=== PATIENT | male | born 1985 | race Caucasian/White ===

== ENCOUNTER 2024-08-18 10:21 | Inpatient (IN) ==
--- NOTE | 2024-08-18 11:29 | Emergency Department Note ---
Impression & Plan Isael's angina, Odontogenic infection of jaw, Narrowing of airway ED Provider Note CHIEF COMPLAINT: Right lower jaw pain x 1 week, right facial swelling x 2 days HISTORY OF PRESENT ILLNESS: Patient is a 38-year-old male with past medical history significant for hypertension, tachycardia, ADHD and bipolar disorder who presents to the emergency department accompanied by duncan for evaluation of fevers, right-sided facial pain and swelling that started over the last couple of days. He has a bad right lower rear molar, that began to act up at the end of last year. He developed pain in the right lower jawline last , 6 days ago. He was using Tylenol and ibuprofen for pain. He had some leftover amoxicillin, which she took for about 3 or 4 days. In the last 2 days, he has developed right sided facial pain, redness and swelling. He reports fevers as high as 102 F orally. He was seen at [facility] yesterday. He had extensive workup including CBC with differential, lactate, magnesium, phosphorus, ESR and blood cultures x 2. CT of the soft tissue neck was obtained. He received IV dexamethasone, Toradol, morphine, Zofran and Zosyn. He was discharged with [place], Levaquin 500 mg daily and metronidazole 500 mg 3 times daily. He was diagnosed with a facial cellulitis and dental infection. Patient now presents to our emergency department because the facial swelling is getting worse. He now has swelling up and around his right eye, which is a change from yesterday. He has continued to run fevers. He started hydroperoxide rinses overnight. He rates his pain a 10/10. He has not been able to eat or swallow well for the last couple of days. REVIEW OF SYSTEMS: Review of systems as per HPI. All other systems reviewed were negative. 10 systems reviewed. PMH: External medical records are reviewed and summarized as above/below. See Problem List. SOCIAL HISTORY: Patient lives at home. Non-smoker. PHYSICAL EXAM: Vital Signs: Reviewed Nurse's notes. CONSTITUTIONAL: Patient is in overweight, ill although nontoxic appearing 38-year-old male who is laying semiupright in the gurney. He is managing his own secretions. HEENT: Normocephalic, atraumatic. Pupils equal, round, reactive to light and accommodation. EOMs intact without nystagmus. Sclera are anicteric. No conjunctival injection. No chemosis. No proptosis. Tympanic membranes intact, with normal landmarks. External canals are clear. Nasopharynx is clear. Exam of the oropharynx is difficult due to trismus. There is an obvious cavity of the right lower first molar. There does appear to be the posterior pharyngeal fullness on the right, with uvular deviation. Sublingual space is soft. FACE: Significant swelling, erythema, increased warmth and induration of the right cheek, spreading towards the right christianity area. There is associated periorbital swelling with mild erythema. Cellulitis extends into the jawline, and the right submental/sublingual space. There is periorbital erythema, which is soft. NECK: Cervical chain lymphadenopathy noted bilaterally. HEART: Regular rate and rhythm, mildly tachycardic in the 90s. LUNGS: Clear to auscultation. ED course: The patient was seen and assessed as above. External medical records are reviewed. He presents to the emergency department for fairly significant right-sided facial swelling consistent with cellulitis and concerning for abscess or even Isael's angina. He is managing his airway and tolerating secretions. IV lock was initiated. Laboratory studies including CBC with differential, CMP, lactate, Pro-Guille and blood cultures x 2 were collected. He was hydrated with normal saline solution and treated with Zofran and morphine IV. He was given Unasyn IV. CT of the soft tissue neck/facial area was obtained to evaluate the swelling. Diagnostics, as interpreted by me: Laboratory studies: Elevated white count at 16,900 with left shift and monocytosis. No anemia. No significant electrolyte imbalance, no NICO or transaminitis. Lactate is not elevated and therefore not indicative of severe sepsis. Pro-Guille is elevated at 6.8. Blood cultures are pending. Cardiac monitoring: An order was placed for continuous cardiac monitoring. The monitor shows a sinus tachycardia in the 90s per my interpretation. Imaging studies: CT scan soft tissue face/neck with IV contrast consistent with severe odontogenic infection involving the right hemimandible. There is a periapical abscess noted there. There are extensive inflammatory changes in the right submandibular sublingual and submental spaces with ill-defined foci suggestive of phlegmon versus multifocal abscesses. Additional abscesses also seen in the right temporalis area. There is moderate to severe supraglottic airway narrowing and severe narrowing of the oral and hypopharynx. Patient history and presentation were reviewed with attending physician, Dr. Lindquist. Patient discussed with the ED case management specialist regarding potential for admission. I was contacted by interpreting radiologist, Dr. Carrion, with regard to the patient's CT scan findings, given extensive infectious pathology and airway narrowing. Patient was reassessed. He was feeling mildly improved with the IV pain medications. CT scan findings discussed with the patient and his significant other. They are aware that I am contacting [facility] to discuss his case. I did review the patient with Osiel Carr PharmD, who agreed with Unasyn, and did not feel that any additional antibiotic intervention was necessary at this time. Patient discussed with OMFS, Dr. Woodruff. He reviewed the patient's CT scan, and would like the patient to be admitted to the medical service, with plan for for OR later this afternoon. ED case management specialist again notified regarding plan for admission and OR. [facility] patient reviewed with Dr. Montiel, and RICKY Morales PA-C. Please refer to their H&P, admission orders and OMFS consultation for further information. Patient was updated with regards to the plan for admission and OR. He remained stable and comfortable while in the ED, pending the OR. Chronic conditions affecting care: Chronic dental disease, obesity, hypertension Social determinants of health care impacting treatment: Lack of medical insurance Differential diagnosis: Dental abscess, osteomyelitis, facial cellulitis, facial abscess, Isael's angina, airway compromise, sepsis, among others. Past Med/Surg History Problem List (Updated 08/18/24 @ 18:16 by Katina Garza) Hypertension Odontogenic infection of jaw (Acute) Narrowing of airway (Acute) Isael's angina (Acute) Dental abscess Medical History Sinus tachycardia "since having COVID" Bipolar 1 disorder ADHD Surgical History History of orthopedic surgery Family History (Updated 08/18/24 @ 17:03 by Mikayla Montiel MD) Other Family history non-contributory Social History Smoking Status: Never smoker Preferred Language: Nepali Feels Safe at Home: Yes Allergies Allergies Allergy/AdvReac Type Severity Reaction Status Date / Time lamotrigine [From Lamictal] Allergy Intermediate Rash Verified 08/18/24 15:26 Home Meds Home Medications Medication Instructions Recorded Confirmed hydrocodone 5 mg-acetaminophen 325 1 tab PO Q6H PRN Pain 08/18/24 08/18/24 mg tablet ibuprofen 200 mg tablet 200 mg PO Q6H PRN Pain 08/18/24 08/18/24 levofloxacin 500 mg tablet 500 mg PO DAILY 08/18/24 08/18/24 metronidazole 500 mg tablet 500 mg PO TID 08/18/24 08/18/24 Results & Data (ED) Vital Signs Vital Signs - 24 hr 08/18/24 10:29 08/18/24 11:08 08/18/24 11:09 Temperature 36.4 C L Temperature Source Oral Pulse Rate 100 H 103 H 100 H Pulse Rate from SpO2 Sensor 98 H Pulse Rhythm Regular Pulse Strength Normal Respiratory Rate 16 22 Respiratory Effort / Characteristics Non-Labored Spontaneous Respiratory Depth Normal Respiratory Pattern Regular Blood Pressure 154/103 H Blood Pressure Mean 120 Blood Pressure Position Sitting Pulse Oximetry 98 95 Oxygen Delivery Method Room Air Room Air Sepsis Recent Fever Within 48 Hours Yes Sepsis New/Unexplained Change in Mental Status N/A Sepsis Action Taken by Nursing No Action Required 08/18/24 11:12 08/18/24 11:30 08/18/24 11:41 Temperature Temperature Source Pulse Rate 86 83 Pulse Rate from SpO2 Sensor 88 83 Pulse Rhythm Pulse Strength Respiratory Rate 24 20 Respiratory Effort / Characteristics Respiratory Depth Respiratory Pattern Blood Pressure 156/98 H Blood Pressure Mean 112 Blood Pressure Position Pulse Oximetry 99 95 Oxygen Delivery Method Room Air Room Air Sepsis Recent Fever Within 48 Hours Sepsis New/Unexplained Change in Mental Status Sepsis Action Taken by Nursing 08/18/24 11:50 08/18/24 12:00 08/18/24 12:05 Temperature Temperature Source Pulse Rate 69 97 H Pulse Rate from SpO2 Sensor 67 92 H Pulse Rhythm Pulse Strength Respiratory Rate 19 17 Respiratory Effort / Characteristics Respiratory Depth Respiratory Pattern Blood Pressure 149/89 H Blood Pressure Mean 101 Blood Pressure Position Pulse Oximetry 98 97 Oxygen Delivery Method Room Air Room Air Sepsis Recent Fever Within 48 Hours Sepsis New/Unexplained Change in Mental Status Sepsis Action Taken by Nursing 08/18/24 12:50 08/18/24 12:59 08/18/24 13:00 Temperature Temperature Source Pulse Rate 82 81 Pulse Rate from SpO2 Sensor 81 80 Pulse Rhythm Pulse Strength Respiratory Rate 14 19 Respiratory Effort / Characteristics Respiratory Depth Respiratory Pattern Blood Pressure 147/96 H Blood Pressure Mean 108 Blood Pressure Position Pulse Oximetry 96 97 Oxygen Delivery Method Room Air Room Air Sepsis Recent Fever Within 48 Hours Sepsis New/Unexplained Change in Mental Status Sepsis Action Taken by Nursing 08/18/24 13:03 08/18/24 13:30 08/18/24 13:30 Temperature Temperature Source Pulse Rate 60 67 Pulse Rate from SpO2 Sensor 61 65 Pulse Rhythm Pulse Strength Respiratory Rate 18 18 Respiratory Effort / Characteristics Respiratory Depth Respiratory Pattern Blood Pressure 155/91 H Blood Pressure Mean 110 Blood Pressure Position Pulse Oximetry 100 98 Oxygen Delivery Method Room Air Room Air Sepsis Recent Fever Within 48 Hours Sepsis New/Unexplained Change in Mental Status Sepsis Action Taken by Nursing 08/18/24 13:57 08/18/24 14:00 Temperature Temperature Source Pulse Rate 90 Pulse Rate from SpO2 Sensor 87 Pulse Rhythm Pulse Strength Respiratory Rate 15 Respiratory Effort / Characteristics Respiratory Depth Respiratory Pattern Blood Pressure 161/96 H Blood Pressure Mean 110 Blood Pressure Position Pulse Oximetry 98 Oxygen Delivery Method Room Air Sepsis Recent Fever Within 48 Hours Sepsis New/Unexplained Change in Mental Status Sepsis Action Taken by Prison Medications Current Medication List: was personally reviewed by me Laboratory Data Attestation: I reviewed the patient's lab results. 08/18/24 10:52 08/18/24 10:52 Lab Results 08/18/24 08/18/24 Range/Units 10:52 11:37 WBC 16.92 H (4.8-10.8) K/ul RBC 5.00 (4.70-6.10) M/uL Hgb 15.2 (14.0-18.0) g/dl Hct 45.2 (42.0-52.0) % MCV 90.4 (80.0-100.0) fL MCH 30.4 (25.0-34.0) pg MCHC 33.6 (32.0-36.0) g/dL RDW Std Deviation 45.9 (36.4-46.3) fL RDW Coeff of [place] 13.8 (11.5-14.5) % Plt Count 188 (130-400) K/uL MPV 11.1 (9.4-12.4) fL Immature Gran % (Auto) 1.1 % Neut % (Auto) 83.0 % Lymph % (Auto) 5.9 % [place] % (Auto) 9.2 % Eos % (Auto) 0.2 % Baso % (Auto) 0.6 % Neut # (Auto) 14.05 H (1.40-6.50) K/uL Lymph # (Auto) 0.99 L (1.20-3.40) K/uL [place] # (Auto) 1.56 H (0.11-0.59) K/uL Eos # (Auto) 0.04 (0.00-0.50) K/uL Baso # (Auto) 0.10 (0.00-0.20) K/uL Immature Gran # (Auto) 0.18 (0.01-0.20) K/uL Sodium 137 (136-145) mmol/L Potassium 4.0 (3.5-5.1) mmol/L Chloride 100 (98-107) mmol/L Carbon Dioxide 28 (21-32) mmol/L Anion Gap 9 (3-11) BUN 16 (6-23) mg/dl Creatinine 0.73 (0.6-1.4) mg/dl Est Cr Clr Drug Dosing 183.7 ml/min eGFR 120.17 BUN/Creatinine Ratio 21.9 H (10-20) Glucose 124 H (70-99(Fasting)) mg/dl Lactate 1.6 (0.4-2.0) mmol/L Calcium 9.0 (8.6-10.3) mg/dl Total Bilirubin 1.2 H (0.2-1.0) mg/dl AST 37 (13-39) U/L ALT 36 (7-52) U/L Alkaline Phosphatase 137 H (34-104) U/L Troponin I High Sens 12.8 (0-20) pg/ml Total Protein 6.8 (6.0-8.3) gm/dl Albumin 3.3 L (3.4-5.0) gm/dl Globulin 3.5 (2.5-4.0) gm/dl Albumin/Globulin Ratio 0.9 (0.9-2) Procalcitonin 6.84 H (0-0.5) ng/ml Administered Medications Lactated Ringer's (Lr) 1,000 mls @ 15 mls/hr IV .Q24H [facility] Stop: 08/21/24 15:44 Last Infusion: 08/18/24 15:51 Dose: Infused Documented By: Admin: 08/18/24 15:45 Dose: 15 mls/hr Documented By: FALLON Discontinued Medications Bupivacaine HCl (Bupivacaine/Epinephrine 0.5% 1:200,000 1.8 Ml Carp) Confirm Administered Dose 9 ml .ROUTE .STK-MED ONE Stop: 08/18/24 15:44 Last Admin: 08/18/24 17:29 Dose: 7.2 ml Documented By: RADHA Cefazolin Sodium (Cefazolin 330 Mg/Ml 1 Gm Vial) Confirm Administered Dose 990 mg .ROUTE .STK-MED ONE Stop: 08/18/24 16:46 Last Admin: 08/18/24 17:29 Dose: 990 mg Documented By: RADHA Chlorhexidine Gluconate (Chlorhexidine Gluconate 0.12% 480 Ml) Confirm Administered Dose 480 ml MT [facility] Stop: 08/18/24 15:44 Last Admin: 08/18/24 17:29 Dose: 480 ml Documented By: RADHA Dexamethasone (Dexamethasone Sod Inj 4 Mg/Ml Vial) 6 mg IV NOW STA Stop: 08/18/24 14:17 Last Admin: 08/18/24 14:39 Dose: 6 mg Documented By: LINDA Ampicillin Sodium/Sulbactam Sodium (Unasyn) 3,000 mg in 100 mls @ 200 mls/hr IV NOW STA Stop: 08/18/24 11:53 Last Infusion: 08/18/24 12:43 Dose: Infused Documented By: Admin: 08/18/24 11:38 Dose: 200 mls/hr Documented By: PARDEEP Sodium Chloride (Nss) 1,000 mls @ 999 mls/hr IV .Q1H1M [place] Stop: 08/18/24 12:27 Last Infusion: 08/18/24 13:41 Dose: Infused Documented By: Admin: 08/18/24 11:39 Dose: 999 mls/hr Documented By: PARDEEP Ioversol (Optiray 320 100ml) 94 ml IV ONCE ONE Stop: 08/18/24 12:22 Last Admin: 08/18/24 12:21 Dose: 94 ml Documented By: MICHI Morphine Sulfate (Morphine Sulfate 4 Mg/Ml 1 Ml Carp\\Vial) 4 mg IV NOW STA Stop: 08/18/24 11:25 Last Admin: 08/18/24 11:38 Dose: 4 mg Documented By: PARDEEP Ondansetron HCl (Ondansetron Inj 2 Mg/Ml 2 Ml Vial) 4 mg IV NOW STA Stop: 08/18/24 11:25 Last Admin: 08/18/24 11:38 Dose: 4 mg Documented By: PARDEEP Imaging Data Attestation: I personally reviewed and interpreted this imaging study as follows: Radiologist's Impression: Soft Tissue Neck CT 08/18/24 11:24 CT OF THE NECK WITH IV CONTRAST CLINICAL HISTORY: R LOWER DENTAL INFECTION, EVAL LUDWIGS/AIRWAY COMPARISON STUDY: No previous studies for comparison. TECHNIQUE: Following IV administration of 94 mL of Optiray, helical axial images of the neck were obtained. Sagittal and coronal reconstructions were viewed. Automated exposure control was utilized for the study. A dose lowering technique was utilized adhering to the principles of ALARA. CT DOSE: 602.89 mGy.cm FINDINGS: Visualized portions of the intracranial contents demonstrate a 4.1 cm focus of encephalomalacia within the anterior right frontal lobe. No retrobulbar abnormalities are identified. Mastoid air cells are clear. There is mild sinus mucosal thickening. Extensive inflammation is centered on the right hemimandible. Specifically, there are dental carries a periapical lucency of the right first mandibular molar. There is a rim-enhancing 1.6 x 0.6 cm fluid collection along the right hemimandible on image 236 of 481 consistent with an abscess. Multiple additional ill-defined hypodense foci with peripheral enhancement within the right submandibular, sublingual and submental spaces is present. There is asymmetric enhancement and enlargement of the right submandibular gland which is likely reactive. Inflammation extends into the right infratemporal fossa with suspected phlegmon and possible developing abscess. Hypodense focus within the right submandibular space on image 235 measures 4.3 x 3.9 x 2.6 cm. Elongated rim-enhancing fluid collections within the right temporalis muscle measure up to 6.5 x 1.2 cm. Right neck and floor of mouth inflammation results in moderate to severe supraglottic airway narrowing. There is also severe narrowing of the hypoechoic and oropharynx. Asymmetric thickening of the right platysma is noted. Skin thickening and subcutaneous stranding extend throughout the anterior neck. There is no soft tissue gas. Multiple enlarged right cervical lymph nodes are noted, including a 2.6 x 1.8 cm right submandibular lymph node on image 276. Visualized portions of the lung apices are unremarkable. There is minimal prevertebral edema. There is thickening of the epiglottis and aryepiglottic folds. IMPRESSION: 1. Findings consistent with an severe odontogenic infectious process centered on the right hemimandible, likely arising from the right first mandibular molar with dental caries and periapical lucency and adjacent 1.6 x 0.6 cm abscess. Extensive associated inflammation within the right submandibular, sublingual and submental spaces with ill-defined hypodense foci with peripheral enhancement suggestive of phlegmon with developing multifocal abscesses, as described above. Additional abscesses within the right temporalis muscle. This inflammation results in moderate to severe supraglottic airway narrowing and severe narrowing of the oral and hypopharynx. Overall, these findings raise the possibility of Isael's angina. ENT/maxillofacial consultation is recommended. Findings discussed with Katina Garza at time of dictation. 2. Thickening of the aryepiglottic folds and epiglottis, likely secondary to the odontogenic process. 3. Right cervical lymphadenopathy which is likely reactive. 4. No soft tissue gas. ACT 112: Negative or not required by law. Electronically signed by: Riley Carrion M.D. 08/18/2024 12:55 PM Discharge Plan Visit Data Chief Complaint: Dental/Oral Stated Complaint: DOC REF, ABCESS ON FACE ED Provider: Poncho Lindquist ED Midlevel Provider: Katina Garza Discharge Problem: Isael's angina, Odontogenic infection of jaw, Narrowing of airway Patient Disposition: Admitted As Inpatient Condition: Serious
[2024-08-18] MEDS: ONDANSETRON INJ 2 MG/ML 2 ML VIAL IV STA (11:38)
[2024-08-18] MEDS: MoRPHine SULFATE 4 MG/ML 1 ML CARP\\VIAL IV STA (11:38)
[2024-08-18] MEDS: AMPICILLIN/SULBACTAM SOD 3,000 MG/100 ML BAG IV STA (11:38)
[2024-08-18] MEDS: SODIUM CHLORIDE 0.9% 1,000 ML IV SCH (11:39)
[2024-08-18 12:06] LABS: Albumin Globulin Ratio 0.9 (0.9-2); Albumin Level 3.3 gm/dl (3.4-5.0); BUN Creatinine Ratio 21.9 (10-20); Bilirubin,Total 1.2 mg/dl (0.2-1.0); Creatinine Clr Calc Pharmacy 183.7 ml/min; Globulin 3.5 gm/dl (2.5-4.0); Total Protein 6.8 gm/dl (6.0-8.3)
[2024-08-18 12:19] LABS: Basophils % (auto) 0.6 %; Eosinophils # (auto) 0.04 K/uL (0.00-0.50); Eosinophils % (auto) 0.2 %; Hematocrit (blood only) 45.2 % (42.0-52.0); Hemoglobin 15.2 g/dl (14.0-18.0); Immature Granulocytes # (auto) 0.18 K/uL (0.01-0.20); Immature Granulocytes % (auto) 1.1 %; Lymphocytes # (auto) 0.99 K/uL (1.20-3.40); Lymphocytes % (auto) 5.9 %; Mean Corpuscular Hemoglobin 30.4 pg (25.0-34.0); Mean Corpuscular Hgb Conc 33.6 g/dL (32.0-36.0); Mean Corpuscular Volume 90.4 fL (80.0-100.0); Mean Platelet Volume 11.1 fL (9.4-12.4); Monocytes # (auto) 1.56 K/uL (0.11-0.59); Monocytes % (auto) 9.2 %; Neutrophils # (auto) 14.05 K/uL (1.40-6.50); Platelet Count 188 K/uL (130-400); RDW Coefficient of Variation 13.8 % (11.5-14.5); RDW Standard Deviation 45.9 fL (36.4-46.3); White Blood Count 16.92 K/ul (4.8-10.8)
[2024-08-18] MEDS: OPTIRAY 320 100ml IV ONE (12:21)
--- NOTE | 2024-08-18 12:56 | CT Scan Report ---
CT OF THE NECK WITH IV CONTRAST CLINICAL HISTORY: R LOWER DENTAL INFECTION, EVAL LUDWIGS/AIRWAY COMPARISON STUDY: No previous studies for comparison. TECHNIQUE: Following IV administration of 94 mL of Optiray, helical axial images of the neck were ob tained. Sagittal and coronal reconstructions were viewed. Automated exposure control was utilized f or the study. A dose lowering technique was utilized adhering to the principles of ALARA. CT DOSE: 602.89 mGy.cm FINDINGS: Visualized portions of the intracranial contents demonstrate a 4.1 cm focus of encephaloma lacia within the anterior right frontal lobe. No retrobulbar abnormalities are identified. Mastoid ai r cells are clear. There is mild sinus mucosal thickening. Extensive inflammation is centered on the right hemimandible. Specifically, there are dental carries a periapical lucency of the right first ma ndibular molar. There is a rim-enhancing 1.6 x 0.6 cm fluid collection along the right hemimandible o n image 236 of 481 consistent with an abscess. Multiple additional ill-defined hypodense foci with pe ripheral enhancement within the right submandibular, sublingual and submental spaces is present. Ther e is asymmetric enhancement and enlargement of the right submandibular gland which is likely reactive . Inflammation extends into the right infratemporal fossa with suspected phlegmon and possible develo ping abscess. Hypodense focus within the right submandibular space on image 235 measures 4.3 x 3.9 x 2.6 cm. Elongated rim-enhancing fluid collections within the right temporalis muscle measure up to 6. 5 x 1.2 cm. Right neck and floor of mouth inflammation results in moderate to severe supraglottic air way narrowing. There is also severe narrowing of the hypoechoic and oropharynx. Asymmetric thickening of the right platysma is noted. Skin thickening and subcutaneous stranding extend throughout the ant erior neck. There is no soft tissue gas. Multiple enlarged right cervical lymph nodes are noted, incl uding a 2.6 x 1.8 cm right submandibular lymph node on image 276. Visualized portions of the lung api lexy are unremarkable. There is minimal prevertebral edema. There is thickening of the epiglottis and aryepiglottic folds. IMPRESSION: 1. Findings consistent with an severe odontogenic infectious process centered on the right hemimandib le, likely arising from the right first mandibular molar with dental caries and periapical lucency an d adjacent 1.6 x 0.6 cm abscess. Extensive associated inflammation within the right submandibular, soliz blingual and submental spaces with ill-defined hypodense foci with peripheral enhancement suggestive of phlegmon with developing multifocal abscesses, as described above. Additional abscesses within the right temporalis muscle. This inflammation results in moderate to severe supraglottic airway narrowi ng and severe narrowing of the oral and hypopharynx. Overall, these findings raise the possibility of Isael's angina. ENT/maxillofacial consultation is recommended. Findings discussed with Kayleigh shankar at time of dictation. 2. Thickening of the aryepiglottic folds and epiglottis, likely secondary to the odontogenic process. 3. Right cervical lymphadenopathy which is likely reactive. 4. No soft tissue gas. ACT 112: Negative or not required by law. Electronically signed by: Riley Carrion M.D. 08/18/2024 12:55 PM
--- NOTE | 2024-08-18 13:28 | History & Physical Report ---
Date of Service August 18, 2024 Assessment & Plan (1) Dental abscess: (2) Isael's angina: (3) Narrowing of airway: (4) Odontogenic infection of jaw: (5) Hypertension: Plan This is a 38-year-old male who presented on 08/18 for severe right submandibular and facial swelling. # Sepsis/right mandibular abscess | severe odontogenic infection | Isael's angina Leukocytosis at 16.92 on arrival, tachycardic, febrile at home Procalcitonin elevated at 6.84, lactate negative, blood cultures drawn and pending Soft tissue neck CT revealed findings consistent with severe odontogenic infection involving the right hemimandible with a 1.6 x 0.6 cm abscess; extensive associated inflammation Raises the concerns for Isael's angina Maxillofacial surgery consult appreciated Scheduled for I&D with Dr. Terrence Woodruff at 1350 on 08/18 Patient will require ICU due to severe supraglottic airway narrowing seen on imaging Unasyn 3000 mg IV q6h Decadron 6 mg IV TID IV acetaminophen and morphine PRN IV antiemetics PRN Continue to monitor for airway obstruction/swelling progression #HTN Will plan to reinitiate patient on HCTZ 25 mg daily following procedure #Episode of chest pain Reported morning [employer]; lasted 3 minutes Troponin ordered, pending EKG ordered, pending Continuous telemetry monitoring for now #Abnormal appearance of brain on CT-has 4.1 cm area of encephalomalacia in the right frontal lobe-unclear etiology - Recommend follow-up with brain MRI MS known history of stroke or other issue from childhood? #Abnormal LFTs-alkaline phosphatase and total bilirubin mildly elevated. Given obesity could be from fatty liver - Follow CMP and follow as outpatient Disposition: Admit to ICU VTE PPx: Lovenox 40 mg SQ q24h History of Present Illness Chief Complaint: Dental abscess Primary Care Provider: NO PCP Mr. King is a 38-year-old male without significant PMH. He presented on 08/18 due to concerns for dental abscess x 1.5 week [employer]. Patient reports that the swelling in his right jaw has progressively worsened over the past week. He went to [facility] yesterday, where he had a CT scan of his face done revealing an odontogenic infection of the jaw; he was sent home on oral antibiotics. He then woke up this morning, and felt like the swelling had extended to his right eye and mouth. He took Tylenol and ibuprofen at 0900 prior to coming to the hospital, but had difficulty swallowing the pills. He reports that it hurts to swallow, and he has not had anything solid to eat since 08/13. Patient also reports he had fevers at home intermittently up to 102 F. He denies prior history of dental infections. No history of MRSA infections to his knowledge. No puslike drainage from the mouth. No prior cardiac history (no history of [place], CHF, diabetes, or stroke). He reports his only medical condition is high blood pressure, for which he has hydrochlorothiazide 25 mg daily; however, he has not been taking this due to not having insurance and being out of pills. No sick contacts. Additionally, he reports that he developed brownish/black diarrhea last night. Patient has not been to a dentist in a couple years. He denies smoking or recent alcohol use. Former tobacco chewer, but nothing within the past year. Patient is hypertensive at 149/89 at time of admission; vitals otherwise stable. ED course: Unasyn 3000 mg IV NSS 1000 mL IV Zofran 4 mg IV Morphine 4 mg IV ROS: Patient endorses fevers, chills, night-sweats, body aches, TORRES, brief episode of sharp chest pain this morning (lasted approximately 3 minutes after waking), diarrhea started last night, Patient denies dizziness, lightheadedness, changes in vision, blurry vision, double vision, photophobia, tinnitus, chest pain, chest palpitations, SOB, pleuritic CP, blood in the urine/stool, burning with urination, or numbness/tingling in the arms or legs. Allergies Allergy/AdvReac Type Severity Reaction Status Date / Time lamotrigine [From Lamictal] Allergy Intermediate Rash Verified 08/18/24 15:26 Home Medications Medication Instructions Recorded Confirmed Type hydrocodone 5 mg-acetaminophen 325 1 tab PO Q6H PRN Pain 08/18/24 08/18/24 History mg tablet ibuprofen 200 mg tablet 200 mg PO Q6H PRN Pain 08/18/24 08/18/24 History levofloxacin 500 mg tablet 500 mg PO DAILY 08/18/24 08/18/24 History metronidazole 500 mg tablet 500 mg PO TID 08/18/24 08/18/24 History Past Med/Surg History Problem List Hypertension Odontogenic infection of jaw Narrowing of airway Isael's angina Dental abscess Medical History Sinus tachycardia "since having COVID" Bipolar 1 disorder ADHD Surgical History History of orthopedic surgery Family History (Updated 08/18/24 @ 17:03 by Mikayla Montiel MD) Other Family history non-contributory Social History Smoking Status: Never smoker Preferred Language: Mongolian Feels Safe at Home: Yes Review of Systems 2 Review of Systems: See HPI above Physical Exam 2 Physical Exam: General: no acute distress; significant other at bedside; non-toxic appearing; well-nourished; cooperative HEENT: normocephalic, atraumatic; severe right submandibular, cheek, and orbital swelling (see photo below); no scleral icterus; PERRLA; right orbital is swollen, however patient does exhibit ability to open eye with full EOMs intact; vision and hearing intact; + trismus; unable to visualize the uvula; right sided tonsillitis with swelling (no exudates) Neck: supple; trachea midline; right submandibular/anterior chain/cervical lymphadenopathy appreciated; airway appears patent, but difficult to visualize on physical exam Skin: Erythematous; warm to touch; diaphoretic; no cyanosis; no rashes, bruising, or lesions noted CV: chest wall NTP; RRR; S1/S2 normal; no murmurs/rubs/gallops; pulses intact and symmetric at radial, DP, and PT Lungs: no acute respiratory distress; symmetrical chest wall expansion; clear breath sounds across all lung alcaraz w/o adventitious sounds; no wheezing; no stridor ABD: Soft, NTP; BS present; no rebound/guarding; no distention MSK: no tics or fasciculations; no edema noted in the LEs b/l, nonerythematous Neuro: A&Ox3; normal mood and affect; fluent speech; no focal deficits; sensation intact and symmetric in the LEs b/l Results & Data Results & Data Vital Signs (Past 12 Hours) Vital Signs Temp Pulse Resp BP Pulse Ox O2 Del Method 08/18/24 12:05 97 H 17 97 Room Air 08/18/24 12:00 149/89 H 08/18/24 11:50 69 19 98 Room Air 08/18/24 11:41 83 20 95 Room Air 08/18/24 11:30 156/98 H 08/18/24 11:12 86 24 99 Room Air 08/18/24 11:09 100 H 22 95 Room Air 08/18/24 11:08 103 H 08/18/24 10:29 36.4 C L 100 H 16 154/103 H 98 Room Air Laboratory Results Abnormal lab results 08/18/24 Range/Units 10:52 WBC 16.92 H (4.8-10.8) K/ul Neut # (Auto) 14.05 H (1.40-6.50) K/uL Lymph # (Auto) 0.99 L (1.20-3.40) K/uL [place] # (Auto) 1.56 H (0.11-0.59) K/uL BUN/Creatinine Ratio 21.9 H (10-20) Glucose 124 H (70-99(Fasting)) mg/dl Total Bilirubin 1.2 H (0.2-1.0) mg/dl Alkaline Phosphatase 137 H (34-104) U/L Albumin 3.3 L (3.4-5.0) gm/dl Procalcitonin 6.84 H (0-0.5) ng/ml Diagnostic Findings Soft Tissue Neck CT 08/18/24 11:24 CT OF THE NECK WITH IV CONTRAST CLINICAL HISTORY: R LOWER DENTAL INFECTION, EVAL LUDWIGS/AIRWAY COMPARISON STUDY: No previous studies for comparison. TECHNIQUE: Following IV administration of 94 mL of Optiray, helical axial images of the neck were obtained. Sagittal and coronal reconstructions were viewed. Automated exposure control was utilized for the study. A dose lowering technique was utilized adhering to the principles of ALARA. CT DOSE: 602.89 mGy.cm FINDINGS: Visualized portions of the intracranial contents demonstrate a 4.1 cm focus of encephalomalacia within the anterior right frontal lobe. No retrobulbar abnormalities are identified. Mastoid air cells are clear. There is mild sinus mucosal thickening. Extensive inflammation is centered on the right hemimandible. Specifically, there are dental carries a periapical lucency of the right first mandibular molar. There is a rim-enhancing 1.6 x 0.6 cm fluid collection along the right hemimandible on image 236 of 481 consistent with an abscess. Multiple additional ill-defined hypodense foci with peripheral enhancement within the right submandibular, sublingual and submental spaces is present. There is asymmetric enhancement and enlargement of the right submandibular gland which is likely reactive. Inflammation extends into the right infratemporal fossa with suspected phlegmon and possible developing abscess. Hypodense focus within the right submandibular space on image 235 measures 4.3 x 3.9 x 2.6 cm. Elongated rim-enhancing fluid collections within the right temporalis muscle measure up to 6.5 x 1.2 cm. Right neck and floor of mouth inflammation results in moderate to severe supraglottic airway narrowing. There is also severe narrowing of the hypoechoic and oropharynx. Asymmetric thickening of the right platysma is noted. Skin thickening and subcutaneous stranding extend throughout the anterior neck. There is no soft tissue gas. Multiple enlarged right cervical lymph nodes are noted, including a 2.6 x 1.8 cm right submandibular lymph node on image 276. Visualized portions of the lung apices are unremarkable. There is minimal prevertebral edema. There is thickening of the epiglottis and aryepiglottic folds. IMPRESSION: 1. Findings consistent with an severe odontogenic infectious process centered on the right hemimandible, likely arising from the right first mandibular molar with dental caries and periapical lucency and adjacent 1.6 x 0.6 cm abscess. Extensive associated inflammation within the right submandibular, sublingual and submental spaces with ill-defined hypodense foci with peripheral enhancement suggestive of phlegmon with developing multifocal abscesses, as described above. Additional abscesses within the right temporalis muscle. This inflammation results in moderate to severe supraglottic airway narrowing and severe narrowing of the oral and hypopharynx. Overall, these findings raise the possibility of Isael's angina. ENT/maxillofacial consultation is recommended. Findings discussed with Kayleigh Garza at time of dictation. 2. Thickening of the aryepiglottic folds and epiglottis, likely secondary to the odontogenic process. 3. Right cervical lymphadenopathy which is likely reactive. 4. No soft tissue gas. ACT 112: Negative or not required by law. Electronically signed by: Riley Carrion M.D. 08/18/2024 12:55 PM ECG Additional Comments: ECG on 08/18/2024 at 1437 with normal sinus rhythm with sinus arrhythmia, rate 67, no ischemic changes Code Status & VTE Plan Code Status Full code VTE Prophylaxis Plan VTE Prophylaxis will be ordered: Yes Supervising Physician Co-Signing Physician Notes PETER Supervision Note: I personally saw and examined the patient. I verified all johnson points and agree with PETER Morales with the following exceptions and/or additions: S-patient is a 38-year-old male with history of HTN here with significant right- sided facial and odontogenic infection with Isael's angina. With leukocytosis, fever, and tachycardia as well as source of infection. Patient is admitted with sepsis Isael's angina. History and ROS otherwise reviewed as above O- Vitals reviewed Gen: AAOx3, NAD, obese HEENT: With significant facial swelling with right periorbital edema, significant induration of right cheek and with edema of the right submandibular region and right temporal region with tenderness and erythema, oropharynx with difficulty visualizing due to trismus but large tongue and large neck, Mallampati 4 CV: RRR no mgr nl S1S2 Pulm: CTAB no wcr Ext: No edema A/M-38-bwgb-old male with history of HTN here with sepsis and Isael's angina Plan for urgent incision and drainage of abscess - Continue IV antibiotics, IV steroids, and manage postoperatively in the ICU in case of airway compromise - Pain control, keep n.p.o. for now and add LR for maintenance fluids - Follow cultures from the OR and blood cultures PG Care Time/CCT Total # of Minutes Spent Total Time Spent with Patient: Total time spent is greater than 50% in coordination of care (as documented) at patient's floor/unit and/or counseling patient: [place] [address] INT INP/OBS CARE 3/75MIN Patient Type New Medical Decision Making High Complexity Diagnoses Dental abscess K04.7 Isael's angina K12.2 Narrowing of airway J98.8 Odontogenic infection of jaw M27.2 Hypertension I10
[2024-08-18] MEDS: DEXAMETHASONE SOD INJ 4 MG/ML VIAL IV STA (14:39)
[2024-08-18] MEDS ORDERED: DEXAMETHASONE SOD INJ 4 MG/ML VIAL ONE (15:10)
[2024-08-18] MEDS ORDERED: MIDAZOLAM HCL 1 MG/ML 2ML VIAL ONE ×2 (15:10→17:16)
[2024-08-18] MEDS ORDERED: fentaNYL citrate PF 100 MCG/2 ML VIAL ONE ×3 (15:10→17:04)
[2024-08-18] MEDS ORDERED: SUGAMMADEX SODIUM 200 MG/2 ML VIAL IV ONE (15:10)
[2024-08-18] MEDS ORDERED: ROCURONIUM BROMIDE 10 MG/ML 5 ML VIAL IV ONE ×2 (15:10→17:04)
[2024-08-18] MEDS ORDERED: GLYCOPYRROLATE 0.2 MG/ML VIAL ONE (15:10)
[2024-08-18] MEDS ORDERED: PROPOFOL IV EMULSION 10 MG/ML 20 ML VIAL IV ONE (15:10)
[2024-08-18] MEDS ORDERED: ONDANSETRON INJ 2 MG/ML 2 ML VIAL ONE (15:10)
[2024-08-18] MEDS ORDERED: LIDOCAINE 2% 2 ML VIAL/AMP(20MG/ML) INFIL ONE (15:10)
[2024-08-18] MEDS ORDERED: KETAMINE HCL 10MG/ML SYR ONE (15:11)
[2024-08-18 15:12] LABS: Troponin I High Sensitivity 12.8 pg/ml (0-20)
--- NOTE | 2024-08-18 15:18 | Oral/Maxillofacial Consult ---
Date of Consultation August 18, 2024 Assessment & Plan (1) Hypertension: (2) Odontogenic infection of jaw: (3) Narrowing of airway: (4) Isael's angina: (5) Dental abscess: History of Present Illness Reason for Consultation: acute frost facial infection right side History of Present Illness Oral Maxillofacial Surgery Exam Present Complaint: Significant right side facial swelling right temporal area, masseter space, submandibular and submental spaces. Dental pain on an doff for over 1 year last night massive facial swelling- came to ER this afternoon Symptoms have been ongoing for a while. Mr. King is a 38-year-old male without significant PMH. He presented on 08/18 due to concerns for dental abscess x 1.5 week [employer]. Patient reports that the swelling in his right jaw has progressively worsened over the past week. He went to [place] yesterday, where he had a CT scan of his face done revealing an odontogenic infection of the jaw; he was sent home on oral antibiotics. He then woke up this morning, and felt like the swelling had extended to his right eye and mouth. He took Tylenol and ibuprofen at 0900 prior to coming to the hospital, but had difficulty swallowing the pills. He reports that it hurts to swallow, and he has not had anything solid to eat since 08/13. Patient also reports he had fevers at home intermittently up to 102 F. He denies prior history of dental infections. No history of MRSA infections to his knowledge. No puslike drainage from the mouth. No prior cardiac history (no history of [place], CHF, diabetes, or stroke). He reports his only medical condition is high blood pressure, for which she has hydrochlorothiazide 25 mg daily; however, he has not been taking this due to not having insurance and being out of pills. No sick contacts. Additionally, he reports that he developed brownish/black diarrhea last night. Patient has not been to a dentist in a couple years. He denies smoking or recent alcohol use. Former tobacco chewer, but nothing within the past year. Patient is hypertensive at 149/89 at time of admission; vitals otherwise stable. ED course: Unasyn 3000 mg IV NSS 1000 mL IV Zofran 4 mg IV Morphine 4 mg IV. Oral Exam: Finding--Swollen, tender gingival tissue with deep pocket formation.# 30 abnormal position and removal is clinical indicated. Trismus, floor of the mouth swelling. poor oral care Imaging: CT was reviewed, there were no abnormal findings other then abscessed area and infected teeth The TMJ are well positioned and no evidence of bony pathology. The sinus, supporting bone all WNL The following teeth were grossly infected # 30 CT OF THE NECK WITH IV CONTRAST CLINICAL HISTORY: R LOWER DENTAL INFECTION, EVAL LUDWIGS/AIRWAY FINDINGS: Visualized portions of the intracranial contents demonstrate a 4.1 cm focus of encephalomalacia within the anterior right frontal lobe. No retrobulbar abnormalities are identified. Mastoid air cells are clear. There is mild sinus mucosal thickening. Extensive inflammation is centered on the right hemimandible. Specifically, there are dental carries a periapical lucency of the right first mandibular molar. There is a rim-enhancing 1.6 x 0.6 cm fluid collection along the right hemimandible on image 236 of 481 consistent with an abscess. Multiple additional ill-defined hypodense foci with peripheral enhancement within the right submandibular, sublingual and submental spaces is present. There is asymmetric enhancement and enlargement of the right submandibular gland which is likely reactive. Inflammation extends into the right infratemporal fossa with suspected phlegmon and possible developing abscess. Hypodense focus within the right submandibular space on image 235 measures 4.3 x 3.9 x 2.6 cm. Elongated rim-enhancing fluid collections within the right temporalis muscle measure up to 6.5 x 1.2 cm. Right neck and floor of mouth inflammation results in moderate to severe supraglottic airway narrowing. There is also severe narrowing of the hypoechoic and oropharynx. Asymmetric thickening of the right platysma is noted. Skin thickening and subcutaneous stranding extend throughout the anterior neck. There is no soft tissue gas. Multiple enlarged right cervical lymph nodes are noted, including a 2.6 x 1.8 cm right submandibular lymph node on image 276. Visualized portions of the lung apices are unremarkable. There is minimal prevertebral edema. There is thickening of the epiglottis and aryepiglottic folds. IMPRESSION: 1. Findings consistent with an severe odontogenic infectious process centered on the right hemimandible, likely arising from the right first mandibular molar with dental caries and periapical lucency and adjacent 1.6 x 0.6 cm abscess. Extensive associated inflammation within the right submandibular, sublingual and submental spaces with ill-defined hypodense foci with peripheral enhancement suggestive of phlegmon with developing multifocal abscesses, as described above. Additional abscesses within the right temporalis muscle. This inflammation results in moderate to severe supraglottic airway narrowing and severe narrowing of the oral and hypopharynx. Overall, these findings raise the possibility of Isael's angina. ENT/maxillofacial consultation is recommended. Findings discussed with Kayleigh Garza at time of dictation. 2. Thickening of the aryepiglottic folds and epiglottis, likely secondary to the odontogenic process. 3. Right cervical lymphadenopathy which is likely reactive. 4. No soft tissue gas. Soft tissue: The floor of the mouth-swollen as is the soft palate, posterior pharyngeal area- no airway issues Temporal area right swollen Submental and submandibular swollen Trismus notes as expected. Cheek swollen, gingival tissue swollen also. Airway is OK Oral Care: Overall oral care is poor TMJ exam: Not able to evaluate due to trismus Periodontal exam: Very swollen and infected gingival tissue with evidence of advanced periodontal pathology. Head/Neck exam: Neck is supple, Difficult with FROM due to right side infection/swelling, still able to extend and flex neck with some effort. pain with swallowing Treatment Plan: Admission to medicine and ICU NPO today Will plan extra oral I&D as needed, extraction of involved teeth lower right side Set up with general anesthesia in hospital vs. surgical due to complexity of the procedure I reviewed the treatment plan and consent with the patient Understanding was expressed. Time was given for questions regarding the surgery, risks and post op care. Discussed alternative to treatment--procedure as planned, Do not do surgery I&D in multiple sites right side The following teeth are decayed and fractured and removal is indicated at least # 30 possible others Risks discussed: Bleeding,Pain,swelling,infection, dry socket, delayed healing, nerve injury to face,lips,tongue,chin area which could be permanent (rare). Recurrence of the infection, scaring from the drains TMJ, jaw stiffness, change in bite (rare), ear pain (referred). Sinus problems like fistula or infection. Surgery to be set up CANDY then ICU admission for airway observation Allergies Allergy/AdvReac Type Severity Reaction Status Date / Time lamotrigine [From Lamictal] Allergy Intermediate Rash Verified 08/18/24 15:26 Home Medications Medication Instructions Recorded Confirmed Type hydrocodone 5 mg-acetaminophen 325 1 tab PO Q6H PRN Pain 08/18/24 08/18/24 History mg tablet ibuprofen 200 mg tablet 200 mg PO Q6H PRN Pain 08/18/24 08/18/24 History levofloxacin 500 mg tablet 500 mg PO DAILY 08/18/24 08/18/24 History metronidazole 500 mg tablet 500 mg PO TID 08/18/24 08/18/24 History Patient History Medical History Sinus tachycardia "since having COVID" Bipolar 1 disorder ADHD Surgical History History of orthopedic surgery Social History Smoking Status: Never smoker Preferred Language: Cambodian Feels Safe at Home: Yes Physical Exam Physical Exam: ROS: Patient endorses fevers, chills, night-sweats, body aches, TORRES, brief episode of sharp chest pain this morning (lasted approximately 3 minutes after waking), diarrhea started last night, Patient denies dizziness, lightheadedness, changes in vision, blurry vision, double vision, photophobia, tinnitus, chest pain, chest palliations, SOB, pleuritic CP, blood in the urine/stool, burning with urination, or numbness/tingling in the arms or legs Physical Exam Constitutional WD/WN, vitals as above Eyes PERRL, conjunctivae normal, anicteric sclerae Mouth significant swelling right side, trismus, The floor of the mouth-swollen as is the soft palate, posterior pharyngeal area-no airway issues Temporal area right swollen Submental and submandibular swollen Trismus notes as expected. Cheek swollen, gingival tissue swollen also. Airway is OK Neck trachea midline, narrowing on airway from infection, this should improve with the I&D, IV antibiotics and steroids talking well, not hot potato voice, no elevation of the tongue, no air way stridor. Respiratory normal respiratory effort, lungs clear to auscultation Auscultation: lungs clear to auscultation bilaterally Skin no rashes, warm and dry right side red, edema , swelling, temporal area submental, submandibular Neurologic PERRL, EOMI, accommodation nl, no face palsy, no dysarthria Cranial Nerves: sense of smell intact, PERRL, normal accommodation, EOM intact bilaterally, normal facial strength, tongue midline, normal gag reflex, normal hearing, able to rotate head bilaterally, able to elevate shoulders bilaterally, no nystagmus and symmetric palate elevation Lymphatic cervical lymphadenopathy right side. Results & Data Vital Signs (Past 12 Hours) Vital Signs Temp Pulse Resp BP Pulse Ox O2 Del Method 08/18/24 14:33 75 13 97 Room Air 08/18/24 14:30 160/104 H 08/18/24 14:12 67 13 97 Room Air 08/18/24 14:00 161/96 H 08/18/24 13:57 90 15 98 Room Air 08/18/24 13:30 155/91 H 08/18/24 13:30 67 18 98 Room Air 08/18/24 13:03 60 18 100 Room Air 08/18/24 13:00 147/96 H 08/18/24 12:59 81 19 97 Room Air 08/18/24 12:50 82 14 96 Room Air 08/18/24 12:05 97 H 17 97 Room Air 08/18/24 12:00 149/89 H 08/18/24 11:50 69 19 98 Room Air 08/18/24 11:41 83 20 95 Room Air 08/18/24 11:30 156/98 H 08/18/24 11:12 86 24 99 Room Air 08/18/24 11:09 100 H 22 95 Room Air 08/18/24 11:08 103 H 08/18/24 10:29 36.4 C L 100 H 16 154/103 H 98 Room Air PG Care Time/CCT Total # of Minutes Spent Total Time Spent with Patient: Total time spent is greater than 50% in coordination of care (as documented) at patient's floor/unit and/or counseling patient: Coding Level of Care Code 69039 OFFICE CONSULT LVL Diagnoses Primary hypertension I10 Hypertension type: primary hypertension Odontogenic infection of jaw M27.2 Narrowing of airway J98.8 Isael's angina K12.2 Dental abscess K04.7 (1) Hypertension Hypertension type: primary hypertension Qualified Code(s): I10 - Essential (primary) hypertension
[2024-08-18] MEDS: LACTATED RINGER'S 1,000 ML IV SCH ×2 (15:45→18:39)
[2024-08-18] MEDS ORDERED: SUCCINYLCHOLINE CHLORIDE 20 MG/ML 10 ML VIAL IV ONE (15:57)
[2024-08-18] MEDS: BUPIVACAINE/EPINEPHRINE 0.5% 1:200,000 1.8 ML CARP ONE (17:29)
[2024-08-18] MEDS: ceFAZolin 330 MG/ML 1 GM VIAL ONE (17:29)
[2024-08-18] MEDS: CHLORHEXIDINE GLUCONATE 0.12% 480 ML MT ONE (17:29)
--- NOTE | 2024-08-18 18:00 | Post Operative Brief Note ---
PG Immediate Post Op with CF Date of Surgery August 18, 2024 Pre & Post Diagnosis Operation Date: 08/18/24 13:50 Pre-Op Diagnosis: Odontogenic Infection of Jaw, Dental Abscess Post-Op Diagnosis: Odontogenic Infection of Jaw, Dental Abscess I identified the patient and participated in the time-out.: Yes Procedure Operation Date: 08/18/24 13:50 Actual Procedures p Right Facial Incision and Drainage(Right) - Terrence Woodruff DMD s Right Lower Teeth Extraction, #30,31,32,1(Right) - Terrence Woodruff DMD Surgeon Terrence Woodruff DMD Bridge Opener none Estimated Blood Loss 25 Findings Consistent with Post-Op Diagnosis acute facial abscess, lateral throat, floor of the mouth Specimens Specimen Description: Culture #1- Right Parotid Space Culture #2- Right Parotid Space Culture #3- Right Parotid Space Drains [place] Drain (1/4 [place] x 4) Anesthesia Type General Complications none Disposition Accompanied Patient To Recovery: Yes
--- NOTE | 2024-08-18 18:16 | Operative Report ---
PG Post Operative Report Pre & Post Diagnosis Operation Date: 08/18/24 13:50 Pre-Op Diagnosis: Odontogenic Infection of Jaw, Dental Abscess Post-Op Diagnosis: Odontogenic Infection of Jaw, Dental Abscess I identified the patient and participated in the time-out.: Yes Procedure Operation Date: 08/18/24 13:50 Actual Procedures p Right Facial Incision and Drainage(Right) - Terrence Woodruff DMD s Right Lower Teeth Extraction, #30,31,32,1(Right) - Terrence Woodruff DMD Surgeon Terrence Woodruff DMD Production Welder none Estimated Blood Loss 25 Findings Consistent with Post-Op Diagnosis Specimens I&D drainage right side Drains Marge x 4 multiple spaces right side Anesthesia Type General Complications none Disposition Accompanied Patient To Recovery: Yes Indications acute facial infection Description of Procedure ICD 10 K12.2 J36 J39 K01.1 K02.61 CPT 14663 13125 [id number] Actual Procedures p Incision and Drainage Submandibular Abscess, temporal, tonsil, lateral throat, mucobuccal, floor of the mouth ; Removal of Tooth #1,30,31,32(Not Applicable) - Terrence Woodruff DMD Once cleared for surgery general anesthesia was achieved, the eyes were protected by the anesthesia dept criteria. A time out was take for patient ID, antibiotics, equipment and position verification once all agreed the procedure began. A throat pack was placed after the oral cavity was irrigated with saline. Once a surgical level of anesthesia was obtained and the local anesthesia was given time for the blocks the surgery was started. I turned my attention to the infection which was located in the floor of the mouth and submental area. The tongue was elevated and there was also swelling associated with teeth 1, 30,31,31 ( see CT scan report) When he was brought down and placed in the operating room a time out was taken to ensure that we indeed had Gael King on our operating room table. We did check his ID. Check his allergies to check to make sure that all equipment was in the office and that we indeed have the correct patient. Once this was verified by the team, the anesthesia department then started the procedure to anesthetized Gael. Because of his significant infection, his oral airway was quite difficult and the anesthesia team using a fiber scope was able to place the anesthesia tube to allow a good fit of the tube in the narrow airway is result of the infection. At this time the operation began. I turned my attention first to opening his mouth. There were significant amount of trismus , but I was able to open his mouth up. On once I was able to place the bite block I was able to see enough through the restricted oral cavity to establish the planes of drainage. A pressure pack was placed around the anesthesia tube and mouth was irrigated with Peridex. I tried to to place some local anesthesia orally, but the tissues were too swollen so I had aborted injection of the local anesthetics. Lower # 30,31 D7210 x 2 Impacted teeth #1 and #32 [id number] x 2 for 1 and 32 The full thick Muco-periosteal flap was made on the facial aspect from # 26-30. The flap was reflected to expose the the subperiosteal space the bone adjacent to # 28. The rongeurs was used to remove bone, the 30 and 32 teeth were removed with a 301 elevator, the mental nerve was intact, there was a large amount of granulat ion tissue on the apex and some more pus that was expressed. I turned my attention first to the three carious teeth in the lower right side, which was the cause of the infection. The first and second lower molar which would be teeth number 30 and 31 were grossly, infected and broke through the cortical plate. Gael told me prior to the procedure that he's been having pain with these teeth for many years. Now with a dental forceps I was able to remove these two teeth. Upon doing so a lot of pus was extruding from the socket. He also had an impacted wisdom tooth on the lower right side, and this tooth was also involved with the infection, especially in the retro mandibular or the masseter space. I reflected the soft tissue further and noted the wisdom tooth which was impacted. With a drill using a round bar I was able to remove bone around the tooth. I split the tooth and remove this wisdom tooth. Upon removing the wisdom tooth this adequately drained the masseter space with a lot of per material being expressed. Now that the teeth were out, I was able to get some decompression of the acute swelling. I noted that there was a huge ulcer where the swelling from the oral cheek was compressing the impacted or partially impacted wisdom tooth on the upper right side, which should be too number one. A tissue an incision was made to reflect this tissue and I was able to take out this tooth. That would be tooth number one, which was impacted. At this time, irrigated the area. Use the drill to smooth out any bony projections and now started the external drainage of these infections Incision and Drainage MULTIPLY SPACE INFECTION JULIEN ANGINA CPT 08231 CPT 12257 CPT 65188 CPT 75808 MULTIPLY SPACE INFECTION JULIEN ANGINA CPT 90235 CPT 98355 CPT 16126 CPT 43053 SPACE INFECTION JULIEN ANGINA CPT 90900 CPT 54554 CPT 28719 CPT 20259 Using a 15 blade an incision was made lateral to the alveolar ridge and medial to the duct of the submandibular gland. Once the incision was made a lot of pus extruded from the site. This drainage was cultured for anaerobic and aerobic bacteria. A curved hemostat was carefully placed into the infected space along the medial side of the lower jaw and into the submental space. Some further drainage was now allowed to escape. I palpated the chin and submental area and no further drainage was expressed. The area was irrigated with at least 100 ml of NS solution. The first incision I made was below the inferior board of the right jaw area. With the use of a tonsil clamp, I was able to open up the tonsil clamp and and push it superiorly and have it at emerge on the lingual surface of the lower jaw. By doing this, I opened up the infection in this floor of the mouth and the submandibular area. A lot of pus was extruded from this area as well. I removed the tonsil clamp, reinserted it, but this time having it exit on the lateral memo face of the inferior lateral surface of the mandible to drain the mucobuccal fold and extended it posteriorly into the masseter space to drain this spaces as well. Once this was done, I was able to palpate the submandibular and the floor of the mouth and got a large amount of pus from these areas. I now needed to make another drainage portal this time up in the temporal area where there was also a pocket of pus which was superior to the zygomatic arch in the temporal facial area. Once a vertical incision was made in this area the tissues the pocket of pus was found and drained with opening up the area to allow for a a hemostat to be placed to open up any pockets. I had one more space to drain and that was an infection that was in the of the cheek. Another incision was made in the cheek area at the most fluctuate aspect of this swelling. The 15 blade was used in the skin, and now using a tonsil clamp I was able to open up into this cheek, infection flap and drained a lot of infection, infected material for that aspect as well. Despite all these drainage portals, the patient still had pockets of pus. It was my opinion that there was a very large pocket of pus on the lateral pharyngeal area as well as the tonsillar area. In addition, there was a infection that was tracking up to the soft palate which needed to be drained. I made an incision in the standard areas site and by doing so I was able to not only drain the soft palate and the sebastian tonsil area, but by pushing on the floor by actually pushing on the tongue and moving the tongue immediately I was able to drain the lateral pharyngeal space. At this time with a lot of palpitation and a lot of massaging, I felt that we established all the drainage portals necessary. The tongue actually became much more flexible to manipulate due to the fact that we drained so much of the pus. I now irrigated the area wash the face wash your own cavity. At at this time, I started placing the drains. Four drains were placed the first drain went from the submandibular area into the lateral pharyngeal space to drain this and submandibular spaces. Another drain was now placed from the inferior board of the mandible , this time exiting on the lateral surface, to drain the angle of the mandible into the masseteric space. This drained the cheek infection the mucobuccal fold infection and the masseteric infection. Another drain was placed from the cheek into the large cheek, cellulitis, and then tracking superiorly up into the temporalis space. The last space that was drained and a drain placement was the the sebastian tonsil area where for the soft tissue palate and upper lateral pharyngeal space. The palate drain was suited with a 2-0 chromic suture orally. All the other sutures were suited with nylon extraorally. The incision sites are also closed with a 6-0 nylon suture. The drains were functioning very well and stable. At this time, the soft gingival tissue was trimmed, closed around the drains to maintain oral drainage yet allow closure of the soft tissue over the bone. I was very pleased with the amount of drainage that we that that occurred. I would say close to about 50 cc of pus drainage was drain. This was very close to becoming a bilateral Julien angina infection. Given the fact that we had swelling on the whole right half of the face from the submandibular area all the way up to the super temporal area I would classify this as a significant Julien's . Once all the drains were in good place and stable and sutured. There was no bleeding. there was no further drainage. All drains were functioning well. At this time, I remove the throat pack , irrigated the oral cavity and then placed an oral gastric tube which we drained a copious amount of stomach fluid. The facial area was washed and a heavy dressings were placed over the cheek and a pressure dressing was applied over the face to allow compression. It was the anesthesia recommendation that he remain intubated in the ICU overnight. The patient was then escorted to the intensive care unit in good condition with vital sign stable breathing well through the anesthesia tube. He will be sedated and monitored in the ICU and I will see the patient in the morning for discussion of extubation and ongoing care. I did discuss the follow up care with his and she was on board with everything we did. I inspected the sites to insure all bleeding was controlled. I removed the throat pack and suctioned the throat. A gauze pressure dressings was placed. All instrument and sponge count was correct. The patient tolerated the surgery very well. I am anticipating an uneventful recovery given the amount of infection and pus that was drained from this gentleman's face. I attest to the content of the Intraoperative Record and any orders documented therein. Any exceptions are noted below.
--- NOTE | 2024-08-18 18:17 | Post Operative Brief Note ---
PG Immediate Post Op with CF Date of Surgery August 18, 2024 Pre & Post Diagnosis Operation Date: 08/18/24 13:50 Pre-Op Diagnosis: Odontogenic Infection of Jaw, Dental Abscess Post-Op Diagnosis: Odontogenic Infection of Jaw, Dental Abscess I identified the patient and participated in the time-out.: Yes Procedure Operation Date: 08/18/24 13:50 Actual Procedures p Right Facial Incision and Drainage(Right) - Terrence Woodruff DMD s Right Lower Teeth Extraction, #30,31,32,1(Right) - Terrence Woodruff DMD Surgeon Terrence Woodruff DMD [place] [employer] Tier none Estimated Blood Loss 25 Findings Consistent with Post-Op Diagnosis acute facial infection Specimens Specimen Description: Culture #1- Right Parotid Space Culture #2- Right Parotid Space Culture #3- Right Parotid Space Drains Marge Drain (1/4 Marge x 4) Anesthesia Type General Complications none Disposition Accompanied Patient To Recovery: Yes
[2024-08-18] MEDS ORDERED: ONDANSETRON INJ 2 MG/ML 2 ML VIAL IV PRN (18:24)
[2024-08-18] MEDS ORDERED: ACETAMINOPHEN 1,000 MG/100 ML VIAL IV PRN ×2 (18:24→19:25)
[2024-08-18] MEDS ORDERED: MoRPHine SULFATE 4 MG/ML 1 ML CARP\\VIAL IV PRN (18:24)
[2024-08-18] MEDS ORDERED: STAT IV Infusion **Titration per Protocol STA (18:26)
[2024-08-18] MEDS: PROPOFOL IV EMULSION 10 MG/ML 100 ML VIAL IV ONE (18:28)
[2024-08-18] MEDS: propofoL 1,000 MG/100 ML VIAL IV SCH (18:40)
[2024-08-18] MEDS: fentaNYL citrate 2,500 MCG/250 ML BAG IV SCH (18:40)
[2024-08-18] MEDS: fentaNYL citrate 2,500 MCG/250 ML BAG IV ONE (18:41)
[2024-08-18] MEDS: ICU Protocol for HYPERglycemia SCH (19:00)
[2024-08-18] MEDS ORDERED: Nursing to Pharmacy Communication SCH (19:15)
--- NOTE | 2024-08-18 19:18 | Critical Care Consultation ---
Date of Consultation August 18, 2024 Assessment & Plan (1) Bipolar 1 disorder: (2) Odontogenic infection of jaw: (3) Narrowing of airway: (4) Dental abscess: (5) ADHD: Plan Reason Critically Ill: 38-year-old male present to the hospital for right jaw pain, fever and weakness which has been going on for approximately 10 days. He had significant narrowing of the airway, and was taken to the OR by Dr. Woodruff and kept intubated as per anesthesia's recommendation Past medical history: Hypertension, history of encephalomalacia in the right frontal lobe Neuro - [facility] ICU: Negative Propofol and fentanyl for sedation and pain management --As per the chart patient seems to have encephalomalacia of the right frontal lobe of unclear etiology Cardiac - -- Sinus tachycardia Likely from underlying sepsis and pain EKG 08/18/2024 1437: Normal sinus rhythm, normal axis, no ST-T wave changes Respiratory - -- On ventilator For airway protection given the significant narrowing from the right-sided abscess Continue with ventilatory support Keep RASS -1 Daily sedation holidays and SBT's Chlorhexidine mouthwash GI - -- Mild elevated alk phos and bilirubin Continue to monitor RENAL/LYTES - -- No acute issues Monitor BUNs/creatinine Avoid nephrotoxic medication ENDO - -- ICU hypoglycemia protocol HEME - -- No acute issues Monitor H&H ID - -- Right jaw infection with dental abscess S/p I&D and right lower teeth extraction on 08/18/[address] Woodruff Continue with Unasyn, continue with Decadron Procalcitonin 6.26 --Prophylaxis VTE: Lovenox GI: Pantoprazole Lines: Peripheral Diet: N.p.o. Plan: Strict in and out Continue with antibiotics along with Decadron to reduce the swelling Patient is high risk for clot in the IJ on the left side given the swelling as well as bacteremia Follow-up blood cultures Chest x-ray to be done for checking the placement of the ETT Signout was given by anesthesia that the area was difficult to intubate given the significant swelling and narrowing. Will continue with ventilator support till the swelling goes down as patient will be very high risk to get reintubated I have personally spent 64 minutes of critical care time in the direct management of this patient. This is a life/limb threatening event. This includes time spent evaluating patient, direct bedside care, chart review, placing orders, interpretation of diagnostic studies, discussion with consultants, patient, and family members, as well as other required patient management activities. This time is exclusive of all separately billable procedures, and teaching time and separate from and in addition to any other critical care service time. History of Present Illness Attending Physician: Mikayla Montiel MD History of Present Illness 38-year-old male present to the hospital for right jaw pain, fever and weakness which has been going on for approximately 10 days. He had significant narrowing of the airway, and was taken to the OR by Dr. Woodruff and kept intubated as per anesthesia's recommendation Past medical history: Hypertension, history of encephalomalacia in the right frontal lobe At the time of examination, patient was intubated He was on propofol 20 and fentanyl 25. His heart rate was in the high 110s, systolic blood pressure was 170s. He was saturating 99% on 50% FiO2. I went down to 40%. He was breathing over the vent. Seem to be in discomfort. I bolused him with 50 of fentanyl and 20 of propofol. He did have significant swelling of the right face including the right eyelid. History was obtained from previous chart as well as RN Allergies Allergy/AdvReac Type Severity Reaction Status Date / Time lamotrigine [From Lamictal] Allergy Intermediate Rash Verified 08/18/24 15:26 Home Medications Medication Instructions Recorded Confirmed Type hydrocodone 5 mg-acetaminophen 325 1 tab PO Q6H PRN Pain 08/18/24 08/18/24 History mg tablet ibuprofen 200 mg tablet 200 mg PO Q6H PRN Pain 08/18/24 08/18/24 History levofloxacin 500 mg tablet 500 mg PO DAILY 08/18/24 08/18/24 History metronidazole 500 mg tablet 500 mg PO TID 08/18/24 08/18/24 History Patient History Medical History Sinus tachycardia "since having COVID" Bipolar 1 disorder ADHD Surgical History History of orthopedic surgery Family History (Updated 08/18/24 @ 17:03 by Mikayla Montiel MD) Other Family history non-contributory Social History Smoking Status: Never smoker Hx Alcohol Use: Yes Alcohol type: beer Hx Substance Use: No Preferred Language: Greek Beliefs That Will Affect Care: None Current Living Situation: Spouse Feels Safe at Home: Yes Review of Systems 2 Review of Systems: Unobtainable due to endotracheal tube Physical Exam 2 Physical Exam: Constitutional: No acute distress HEENT: EOMI and PERRLA of the left eye, right eyelid significantly swollen with swelling of the right temporal region. Bandage in place Respiratory system: Good air entry bilaterally, no wheeze, no rhonchi, no crackles CVS: S1-S2 positive, no murmurs or gallops, tachycardia Abdomen: Soft, nontender, nondistended, positive bowel sounds x4 Extremities: +2 pulses bilaterally radialis/ dorsalis pedis, no cyanosis, no edema Neuro: Breathing over the vent, sedated Psych: Unable to assess G/U: Positive José Skin: no rashes, warm and dry Lymphatic: Right cervical lymphadenopathy Results & Data Results & Data Vital Signs (Past 12 Hours) Vital Signs Temp Pulse Pulse Resp BP BP Pulse Ox 08/18/24 18:44 08/18/24 18:44 36.6 C 112 H 18 97 08/18/24 18:24 110 H 08/18/24 18:19 100 H 18 96 08/18/24 18:12 97 H 18 95 08/18/24 18:10 137/89 08/18/24 18:10 137/89 08/18/24 18:06 100 H 20 96 08/18/24 18:05 126/87 08/18/24 18:05 126/87 08/18/24 18:03 98 H 18 95 08/18/24 18:00 130/86 08/18/24 18:00 36.6 C 99 H 18 130/86 96 08/18/24 15:28 37.5 C 93 H 20 166/93 H 93 08/18/24 14:33 75 13 97 08/18/24 14:30 160/104 H 08/18/24 14:12 67 13 97 08/18/24 14:00 161/96 H 08/18/24 13:57 90 15 98 08/18/24 13:30 155/91 H 08/18/24 13:30 67 18 98 08/18/24 13:03 60 18 100 08/18/24 13:00 147/96 H 08/18/24 12:59 81 19 97 08/18/24 12:50 82 14 96 08/18/24 12:05 97 H 17 97 08/18/24 12:00 149/89 H 08/18/24 11:50 69 19 98 08/18/24 11:41 83 20 95 08/18/24 11:30 156/98 H 08/18/24 11:12 86 24 99 08/18/24 11:09 100 H 22 95 08/18/24 11:08 103 H 08/18/24 10:29 36.4 C L 100 H 16 154/103 H 98 O2 Del Method FiO2 08/18/24 18:44 Mechanical Vent 50 08/18/24 18:44 Mechanical Vent 50 08/18/24 18:24 08/18/24 18:19 50 08/18/24 18:12 08/18/24 18:10 08/18/24 18:10 08/18/24 18:06 08/18/24 18:05 08/18/24 18:05 08/18/24 18:03 08/18/24 18:00 08/18/24 18:00 Mechanical Vent 08/18/24 15:28 Room Air 08/18/24 14:33 Room Air 08/18/24 14:30 08/18/24 14:12 Room Air 08/18/24 14:00 08/18/24 13:57 Room Air 08/18/24 13:30 08/18/24 13:30 Room Air 08/18/24 13:03 Room Air 08/18/24 13:00 08/18/24 12:59 Room Air 08/18/24 12:50 Room Air 08/18/24 12:05 Room Air 08/18/24 12:00 08/18/24 11:50 Room Air 08/18/24 11:41 Room Air 08/18/24 11:30 08/18/24 11:12 Room Air 08/18/24 11:09 Room Air 08/18/24 11:08 08/18/24 10:29 Room Air Laboratory Results 08/18/24 10:52 08/18/24 10:52 Coding Level of Care Code 42219 CRITICAL CARE 1ST 30-74M Diagnoses Bipolar 1 disorder F31.9 Odontogenic infection of jaw M27.2 Narrowing of airway J98.8 Dental abscess K04.7 ADHD F90.9
--- NOTE | 2024-08-18 19:24 | Anesthesiology Progress Note ---
Date of Service August 18, 2024 Anesthesia Post Procedure Vital Signs Vital Signs: Temp Pulse Pulse Resp BP BP Pulse Ox 08/18/24 18:44 08/18/24 18:44 36.6 C 112 H 18 97 08/18/24 18:24 110 H 08/18/24 18:19 100 H 18 96 08/18/24 18:12 97 H 18 95 08/18/24 18:10 137/89 08/18/24 18:10 137/89 08/18/24 18:06 100 H 20 96 08/18/24 18:05 126/87 08/18/24 18:05 126/87 08/18/24 18:03 98 H 18 95 08/18/24 18:00 130/86 08/18/24 18:00 36.6 C 99 H 18 130/86 96 08/18/24 15:28 37.5 C 93 H 20 166/93 H 93 08/18/24 14:33 75 13 97 08/18/24 14:30 160/104 H 08/18/24 14:12 67 13 97 08/18/24 14:00 161/96 H 08/18/24 13:57 90 15 98 08/18/24 13:30 155/91 H 08/18/24 13:30 67 18 98 08/18/24 13:03 60 18 100 08/18/24 13:00 147/96 H 08/18/24 12:59 81 19 97 08/18/24 12:50 82 14 96 08/18/24 12:05 97 H 17 97 08/18/24 12:00 149/89 H 08/18/24 11:50 69 19 98 08/18/24 11:41 83 20 95 08/18/24 11:30 156/98 H 08/18/24 11:12 86 24 99 08/18/24 11:09 100 H 22 95 08/18/24 11:08 103 H 08/18/24 10:29 36.4 C L 100 H 16 154/103 H 98 O2 Del Method FiO2 08/18/24 18:44 Mechanical Vent 50 08/18/24 18:44 Mechanical Vent 50 08/18/24 18:24 08/18/24 18:19 50 08/18/24 18:12 08/18/24 18:10 08/18/24 18:10 08/18/24 18:06 08/18/24 18:05 08/18/24 18:05 08/18/24 18:03 08/18/24 18:00 08/18/24 18:00 Mechanical Vent 08/18/24 15:28 Room Air 08/18/24 14:33 Room Air 08/18/24 14:30 08/18/24 14:12 Room Air 08/18/24 14:00 08/18/24 13:57 Room Air 08/18/24 13:30 08/18/24 13:30 Room Air 08/18/24 13:03 Room Air 08/18/24 13:00 08/18/24 12:59 Room Air 08/18/24 12:50 Room Air 08/18/24 12:05 Room Air 08/18/24 12:00 08/18/24 11:50 Room Air 08/18/24 11:41 Room Air 08/18/24 11:30 08/18/24 11:12 Room Air 08/18/24 11:09 Room Air 08/18/24 11:08 08/18/24 10:29 Room Air Transfer of Care Handoff Completed per policy Notes Mental Status: alert / awake / arousable Patient Amnestic to Procedure: Yes Nausea / Vomiting: adequately controlled Pain: adequately controlled Airway Patency, RR, SpO2: stable & adequate BP & HR: stable & adequate Hydration State: stable & adequate Anesthetic Complications: no major complications apparent
[2024-08-18] MEDS: PROPOFOL BOLUS FROM BAG IV PRN (20:08)
[2024-08-18] MEDS: AMPICILLIN/SULBACTAM SOD 3,000 MG/100 ML BAG IV SCH (20:08)
[2024-08-18] MEDS: ENOXAPARIN INJ 40 MG/0.4 ML SYR SQ SCH (20:09)
[2024-08-18] MEDS: dexAMETHasone 6 MG in SYRINGE 0 ML IV SCH (20:09)
--- NOTE | 2024-08-18 20:52 | XRay Report ---
EXAM: XR chest 1V portable CLINICAL HISTORY: Postintubation. TECHNIQUE: An X-ray image of the chest is obtained in AP projection. COMPARISON: No prior studies are available for comparison. FINDINGS: Pulmonary Parenchyma: No evidence of consolidation, collapse, or focal opacities. No pulmonary nodules are identified. No evidence of right pleural effusion or pleural thickening. The left costophrenic angle is masked by the cardiac shadow; mild left pleural effusion can`t be excluded. Heart and Mediastinum: Apparent cardiomegaly with mild vascular congestion. No mediastinal widening or masses. No hilar or mediastinal lymphadenopathy. Adequately placed ETT, its tip is 2.5 cm above the carinal level. Bony Thorax: Bony thorax appears intact without fractures or deformities. Soft Tissues: Soft tissues overlying the chest wall are unremarkable. IMPRESSION: 1. Adequately placed ETT, its tip is 2.5 cm above the carinal level. 2. Apparent cardiomegaly with mild vascular congestion. Electronically signed by Ady Scanlon 08-18-2024 8:52 PM
[2024-08-18] MEDS ORDERED: ICU Protocol for HYPERglycemia SCH (21:00)
[2024-08-18] MEDS ORDERED: DEXAMETHASONE SOD INJ 4 MG/ML VIAL IV SCH (21:00)
--- NOTE | 2024-08-18 21:42 | Electrocardiogram Report ---
Test Reason : Blood Pressure : */* mmHG Vent. Rate : 67 BPM Atrial Rate : 67 BPM P-R Int : 150 ms QRS Dur : 92 ms QT Int : 426 ms P-R-T Axes : 50 42 41 degrees QTcB Int : 450 ms Normal sinus rhythm with sinus arrhythmia Normal ECG No previous ECGs available Confirmed by Murali Hollingsworth ([id number]) on 08/18/2024 9:41:40 PM Referred By: REFERRED SELF Confirmed By: Murali Hollingsworth
[2024-08-19 05:36] LABS: Hematocrit (blood only) 39.3 % (42.0-52.0); Hemoglobin 13.2 g/dl (14.0-18.0); Mean Corpuscular Hemoglobin 30.1 pg (25.0-34.0); Mean Corpuscular Hgb Conc 33.6 g/dL (32.0-36.0); Mean Corpuscular Volume 89.7 fL (80.0-100.0); Mean Platelet Volume 10.9 fL (9.4-12.4); Platelet Count 223 K/uL (130-400); RDW Coefficient of Variation 14.2 % (11.5-14.5); Red Blood Count 4.38 M/uL (4.70-6.10); White Blood Count 19.81 K/ul (4.8-10.8)
[2024-08-19 05:51] LABS: Albumin Globulin Ratio 0.8 (0.9-2); Albumin Level 2.7 gm/dl (3.4-5.0); Bilirubin,Total 0.6 mg/dl (0.2-1.0); Calcium 8.6 mg/dl (8.6-10.3); Creatinine Clr Calc Pharmacy 220.5 ml/min; Globulin 3.4 gm/dl (2.5-4.0); Magnesium 2.2 mg/dl (1.7-2.4); Phosphorus 2.8 mg/dl (2.5-4.9); Potassium 4.1 mmol/L (3.5-5.1); Total Protein 6.1 gm/dl (6.0-8.3)
[2024-08-19 06:30] LABS: Basophils # (auto) 0.12 K/uL (0.00-0.20); Basophils % (auto) 0.6 %; Immature Granulocytes # (auto) 0.27 K/uL (0.01-0.20); Immature Granulocytes % (auto) 1.4 %; Lymphocytes # (auto) 1.29 K/uL (1.20-3.40); Lymphocytes % (auto) 6.5 %; Monocytes # (auto) 0.95 K/uL (0.11-0.59); Monocytes % (auto) 4.8 %; Neutrophils # (auto) 17.18 K/uL (1.40-6.50); Neutrophils % (auto) 86.7 %; RBC Morphology Unremarkable
[2024-08-19] MEDS: fentaNYL BOLUS from BAG IV PRN (07:40)
--- NOTE | 2024-08-19 08:03 | XRay Report ---
XR chest 1V portable CLINICAL HISTORY: Evaluate lung parenchyma and upper airway edema COMPARISON STUDY: 08/18/2024 FINDINGS: Endotracheal tube tip is stable just below the thoracic inlet. There is stable cardiomegaly with pulmonary vascular congestion. Stable pulmonary interstitial prominence. Stable stranding opaci ty at the left lung base. No new consolidation or pleural effusion seen. No pneumothorax. IMPRESSION: Stable exam. ACT 112: Negative or not required by law. Electronically signed by: Duane Henry M.D. 08/19/2024 8:02 AM
--- NOTE | 2024-08-19 08:31 | Critical Care Progress Note ---
Date of Service August 19, 2024 Assessment & Plan (1) Bipolar 1 disorder: (2) Odontogenic infection of jaw: (3) Narrowing of airway: (4) Dental abscess: (5) ADHD: Plan Reason Critically Ill: 38-year-old male present to the hospital for right jaw pain, fever and weakness which has been going on for approximately 10 days. He had significant narrowing of the airway, and was taken to the OR by Dr. Woodruff and kept intubated as per anesthesia's recommendation Past medical history: Hypertension, history of encephalomalacia in the right frontal lobe Neuro - [facility] ICU: Negative Propofol and fentanyl for sedation and pain management --As per the chart patient seems to have encephalomalacia of the right frontal lobe of unclear etiology Cardiac - -- Sinus tachycardia --> resolved Likely from underlying sepsis and pain EKG 08/18/2024 1437: Normal sinus rhythm, normal axis, no ST-T wave changes Respiratory - -- On ventilator For airway protection given the significant narrowing from the right-sided abscess Continue with ventilatory support Keep RASS -1 Daily sedation holidays and SBT's Chlorhexidine mouthwash GI - -- Mild elevated alk phos and bilirubin Continue to monitor RENAL/LYTES - -- No acute issues Monitor BUNs/creatinine Avoid nephrotoxic medication ENDO - -- ICU hypoglycemia protocol HEME - -- No acute issues Monitor H&H ID - -- Right jaw infection with dental abscess S/p I&D and right lower teeth extraction on 08/18/[address] Woodruff Continue with Unasyn, continue with Decadron Procalcitonin 6.26 Mandibular cultures growing Staph aureus as well as Streptococcus anginosus --Prophylaxis VTE: Lovenox GI: Pantoprazole Lines: Peripheral Diet: N.p.o. Plan: In/out: +2.8 L, urine output 985 mL Given the culture from the mandible is growing staph, we are not sure whether it is MRSA. Will give a dose of daptomycin I personally spoke on the phone with Dr. Woodruff given the significant swelling and lowering of the airway prior to him taking him to the OR As per Dr. Woodruff he did drain significant pus from the oral cavity and there was significant improvement in the movement of the tongue as well as right pharyngeal space. He is able to move his tongue on command without any issues, this is a good sign. Will give a trial of SBT. Will have portable bronchoscope bedside for intubation in future if need be I have personally spent 45 minutes of critical care time in the direct management of this patient. This is a life/limb threatening event. This includes time spent evaluating patient, direct bedside care, chart review, placing orders, interpretation of diagnostic studies, discussion with consultants, patient, and family members, as well as other required patient management activities. This time is exclusive of all separately billable procedures, and teaching time and separate from and in addition to any other critical care service time. Admission and Anticipated Discharge Date Admission Date: August 18, 2024 Subjective Patient seen and examined at bedside. No acute distress, no adverse events overnight He was on 200 of fentanyl and 50 of propofol, his RASS was -1 He did see multiple boluses overnight on top of the current sedated settings to keep him calm He was answering questions appropriately Denied any chest pain, no shortness of breath Review of Systems 2 Review of Systems: All systems reviewed & are unremarkable except as noted in Subjective Physical Exam 2 Physical Exam: Constitutional: No acute distress HEENT: EOMI and PERRLA of the left eye, right eyelid significantly swollen with swelling of the right temporal region. Bandage in place Respiratory system: Good air entry bilaterally, no wheeze, no rhonchi, no crackles CVS: S1-S2 positive, no murmurs or gallops Abdomen: Soft, nontender, nondistended, positive bowel sounds x4 Extremities: +2 pulses bilaterally radialis/ dorsalis pedis, no cyanosis, no edema Neuro: RASS -1, moving all extremities to command Psych: Normal mood and affect G/U: Positive José Skin: no rashes, warm and dry Results & Data Results & Data Vital Signs (Past 12 Hours) Vital Signs Temp Pulse Resp BP Pulse Ox O2 Del Method FiO2 08/19/24 07:29 Mechanical Vent 40 08/19/24 07:27 40 08/19/24 07:19 89 08/19/24 07:18 86 26 H 94 40 08/19/24 07:00 37 C 08/19/24 06:45 126/73 08/19/24 06:42 37.4 C 90 12 93 08/19/24 06:30 112/93 08/19/24 06:30 37.4 C 90 21 92 08/19/24 06:24 37.4 C 87 16 94 08/19/24 06:15 115/74 08/19/24 06:15 115/74 08/19/24 06:15 37.4 C 88 22 92 08/19/24 06:00 124/73 08/19/24 06:00 124/73 08/19/24 05:51 37.3 C 90 17 92 08/19/24 05:45 118/85 08/19/24 05:45 118/85 08/19/24 05:39 37.3 C 90 18 93 08/19/24 05:00 111/73 08/19/24 05:00 37.3 C 78 17 92 08/19/24 04:45 120/74 08/19/24 04:45 120/74 08/19/24 04:45 37.3 C 81 19 91 08/19/24 04:42 37.3 C 95 H 19 93 08/19/24 04:30 109/72 08/19/24 04:30 109/72 08/19/24 04:24 37.3 C 81 16 93 08/19/24 04:21 37.3 C 86 16 93 08/19/24 04:15 37.3 C 85 16 93 08/19/24 04:15 110/69 08/19/24 04:15 110/69 08/19/24 04:12 37.3 C 86 16 93 08/19/24 04:00 40 08/19/24 03:51 37.1 C 83 16 93 08/19/24 03:42 37.0 C 90 16 93 08/19/24 03:30 37.0 C 88 17 93 08/19/24 03:24 37.0 C 89 17 92 08/19/24 03:15 36.9 C 91 H 17 92 08/19/24 03:15 116/74 08/19/24 03:15 116/74 08/19/24 03:14 87 24 93 40 08/19/24 03:00 124/76 08/19/24 03:00 124/76 08/19/24 03:00 124/76 08/19/24 03:00 124/76 08/19/24 03:00 37.3 C 104 H 21 94 08/19/24 02:51 37.3 C 90 18 96 08/19/24 02:45 37.3 C 101 H 18 95 08/19/24 02:45 130/82 08/19/24 02:45 130/82 08/19/24 02:33 37.3 C 90 19 93 08/19/24 02:30 128/96 08/19/24 02:30 128/96 08/19/24 02:24 37.4 C 98 H 17 93 08/19/24 02:09 37.4 C 82 19 93 08/19/24 02:00 111/72 08/19/24 01:51 37.4 C 85 17 93 08/19/24 01:45 37.4 C 84 16 94 08/19/24 01:45 106/71 08/19/24 01:45 106/71 08/19/24 01:39 37.4 C 86 15 94 08/19/24 01:30 114/71 08/19/24 01:30 114/71 08/19/24 01:24 37.4 C 90 17 93 08/19/24 01:21 37.4 C 88 17 93 08/19/24 01:15 119/79 08/19/24 01:15 119/79 08/19/24 01:15 119/79 08/19/24 01:12 37.3 C 95 H 16 94 08/19/24 01:03 37.4 C 87 17 94 08/19/24 01:00 110/72 08/19/24 01:00 110/72 08/19/24 00:51 37.4 C 87 17 94 08/19/24 00:45 111/68 08/19/24 00:30 37.3 C 89 16 94 08/19/24 00:15 37.5 C 86 18 94 08/19/24 00:15 106/71 08/19/24 00:15 106/71 08/19/24 00:00 85 08/19/24 00:00 37.6 C H 90 17 94 08/18/24 23:56 40 08/18/24 23:51 37.4 C 87 15 95 08/18/24 23:45 112/72 08/18/24 23:45 112/72 08/18/24 23:45 37.5 C 88 16 95 08/18/24 23:42 37.4 C 87 16 95 08/18/24 23:30 123/70 08/18/24 23:30 123/70 08/18/24 23:30 37.5 C 92 H 17 95 08/18/24 23:21 37.4 C 91 H 16 95 08/18/24 23:15 120/74 08/18/24 23:15 120/74 08/18/24 23:15 120/74 08/18/24 23:12 37.3 C 90 16 95 08/18/24 23:09 37.3 C 93 H 16 94 08/18/24 23:00 122/74 08/18/24 23:00 122/74 08/18/24 23:00 122/74 08/18/24 22:58 93 H 20 94 40 08/18/24 22:45 110 H 20 95 08/18/24 22:30 130/90 08/18/24 22:30 130/90 08/18/24 22:30 112 H 16 94 08/18/24 22:27 94 H 17 94 08/18/24 22:00 90 20 95 08/18/24 22:00 124/85 08/18/24 22:00 124/85 08/18/24 21:51 92 H 17 94 08/18/24 21:48 93 H 17 94 08/18/24 21:45 126/83 08/18/24 21:45 126/83 08/18/24 21:33 87 17 94 08/18/24 21:30 126/83 08/18/24 21:30 126/83 08/18/24 21:30 126/83 08/18/24 21:30 126/83 08/18/24 21:24 89 17 94 08/18/24 21:09 92 H 17 94 08/18/24 20:58 36.8 C 08/18/24 20:45 88 17 94 08/18/24 20:35 94 H 22 94 40 08/18/24 20:30 93 H 19 94 Laboratory Results 08/19/24 05:17 08/19/24 05:17 Coding Level of Care Code 11894 CRITICAL CARE 1ST 30-74M Diagnoses Bipolar 1 disorder F31.9 Odontogenic infection of jaw M27.2 Narrowing of airway J98.8 Dental abscess K04.7 ADHD F90.9
--- NOTE | 2024-08-19 09:01 | Anesthesiology Consultation ---
Date of Service August 19, 2024 Assessment & Plan Chart Review Chart Review: Acceptable Risk for Surgery ("Late entry" this note was inadvertently omitted from EMR at the time of pt presentation.) Consults Requested none History Surgery Operation Date: 08/18/24 13:50 Proposed Procedures p Right Facial Incision and Drainage - Terrence Woodruff DMD s Right Lower Teeth Extraction - Terrence Woodruff DMD Height/Weight Height: 6 ft Weight: 118.7 kg Allergies Allergy/AdvReac Type Severity Reaction Status Date / Time lamotrigine [From Lamictal] Allergy Intermediate Rash Verified 08/18/24 15:26 Medications Home Medications Medication Instructions Recorded Confirmed Last Taken hydrocodone 5 mg-acetaminophen 325 1 tab PO Q6H PRN Pain 08/18/24 08/18/24 Unknown mg tablet ibuprofen 200 mg tablet 200 mg PO Q6H PRN Pain 08/18/24 08/18/24 Unknown levofloxacin 500 mg tablet 500 mg PO DAILY 08/18/24 08/18/24 Unknown metronidazole 500 mg tablet 500 mg PO TID 08/18/24 08/18/24 Unknown Active Medications Generic Name Dose Route Start Last Admin Trade Name Freq PRN Reason Stop Dose Admin Enoxaparin Sodium 40 mg 08/18/24 21:00 08/18/24 20:09 Enoxaparin Inj 40 Mg/0.4 Ml Syr SQ 09/17/24 20:59 40 mg Q24H OCHOA Administration Fentanyl Citrate 50 mcg 08/18/24 18:26 08/19/24 07:40 Fentanyl Bolus From Bag IV 09/01/24 18:25 50 mcg Q60M PRN Administration Pain or Agitation Lactated Ringer's 1,000 mls @ 15 mls/hr 08/18/24 15:45 08/18/24 15:51 Lr IV 08/21/24 15:44 Infused .Q24H OCHOA Infusion Ampicillin Sodium/Sulbactam Sodium 3,000 mg in 100 mls @ 200 mls/hr 08/18/24 18:45 08/19/24 06:34 Unasyn IV 08/25/24 18:44 Infused Q6H OCHOA Infusion Lactated Ringer's 1,000 mls @ 80 mls/hr 08/18/24 18:24 08/19/24 04:01 Lr IV 08/19/24 19:23 80 mls/hr .[id number] OCHOA Administration Propofol 1,000 mg in 100 mls @ 35.37 mls/hr 08/18/24 18:30 08/19/24 07:14 Diprivan IV 08/21/24 18:29 50 mcg/kg/min .Q2H50M OCHOA 35.4 mls/hr Administration Protocol 50 MCG/KG/MIN Fentanyl Citrate 2,500 mcg in 250 mls @ 20 mls/hr 08/18/24 18:30 08/19/24 07:14 Fentanyl Citrate IV 09/01/24 18:29 200 mcg/hr .[id number] OCHOA 20 mls/hr Titration Protocol 200 MCG/HR Dexamethasone 6 mg/ Syringe 1.5 mls @ 1 mls/min 08/18/24 21:00 08/19/24 09:04 IV 09/17/24 20:59 1 mls/min TID OCHOA Administration Miscellaneous 1 each 08/18/24 18:30 08/19/24 08:12 Icu Protocol For Hyperglycemia N/A 08/20/24 18:29 Not Given ACHS OCHOA Propofol 20 mg 08/18/24 18:26 08/19/24 07:40 Propofol Bolus From Bag IV 08/21/24 18:25 20 mg Q5M PRN Administration Sedation NPO Date Last Intake of Fluids: 08/18/24 Time Last Intake of Fluids: 03:00 Date Last Intake of Solids: 08/13/24 Past Medical History Medical History Sinus tachycardia "since having COVID" Bipolar 1 disorder ADHD Past Family History Family History (Updated 08/18/24 @ 17:03 by Mikayla Montiel MD) Other Family history non-contributory Past Surgical History Surgical History History of orthopedic surgery Social History Smoking Status: Never smoker Hx Alcohol Use: Yes Alcohol type: beer alcohol intake frequency: holidays/special occasions only Hx Substance Use: No Physical Exam Vital Signs Last Vital Signs Temp 37 C 08/19/24 07:00 Pulse 89 08/19/24 07:19 Resp 26 H 08/19/24 07:18 BP 126/73 08/19/24 06:45 Pulse Ox 94 08/19/24 07:18 O2 Del Method Mechanical Vent 08/19/24 07:29 FiO2 40 08/19/24 07:29 Testing Laboratory Results 08/19/24 05:17 08/19/24 05:17 08/18/24 16:35 Gram Stain - Final Mandibular,Right 08/18/24 16:35 Gram Stain - Final Mandibular,Right 08/18/24 16:35 Gram Stain - Final Mandibular,Right 08/19/24 00:03 POC Glucose 124 H
[2024-08-19] MEDS: FUROSEMIDE INJ 20 MG/2 ML VIAL IV ONE (09:03)
[2024-08-19] MEDS ORDERED: Nursing to Pharmacy Communication SCH (11:00)
[2024-08-19] MEDS: MoRPHine SULFATE 2 MG/ML CARP IV PRN (12:49)
--- NOTE | 2024-08-19 14:48 | Progress Note ---
Date of Service August 19, 2024 Assessment & Plan Admission and Anticipated Discharge Date Admission Date: August 18, 2024 Subjective Post Op infection evaluation 24 hurs The infected area is resolving very well. Swelling is much less and the tissue is staring to get back to normal in size and texture.He feels so much better. Able to tolerate Ice and clear liquids Much less drainage is noted. Drains function well Cultures pending reviewed. Infection has responded very well to the antibiotics, extractions and the I and D. I requested that the patient continue with massage, ice, clear liquids, Peridex rise and wound care. Maintain ICU status tonight--OK for transfer tomorrow AM if good night At this time the massive infection has responded well to treatment. I will see tomorrow afternoon and if doing well can consider D?C pending infection and blood cultures. Results & Data Vital Signs (Past 12 Hours) Vital Signs Temp Pulse Resp BP Pulse Ox Pulse Ox O2 Del Method 08/19/24 12:00 153/95 H 08/19/24 12:00 37.5 C 85 15 95 Nasal Cannula 08/19/24 11:45 37.4 C 82 13 96 08/19/24 11:33 37.4 C 83 16 96 08/19/24 11:30 142/83 H 08/19/24 11:24 96 08/19/24 11:21 37.4 C 85 12 94 08/19/24 11:00 37.5 C 83 30 H 96 Nasal Cannula 08/19/24 10:30 130/82 08/19/24 10:30 37.4 C 79 15 95 08/19/24 10:00 37.4 C 87 17 96 Mechanical Vent 08/19/24 09:15 37.3 C 83 12 96 08/19/24 09:15 111/78 08/19/24 09:00 123/75 08/19/24 09:00 123/75 08/19/24 09:00 37.4 C 86 9 L 92 08/19/24 08:45 129/75 08/19/24 08:45 129/75 08/19/24 08:30 131/82 08/19/24 08:15 122/82 08/19/24 08:09 37.4 C 87 18 92 08/19/24 08:06 37.3 C 82 15 93 08/19/24 08:00 133/88 08/19/24 08:00 133/88 08/19/24 08:00 133/88 08/19/24 07:51 37.4 C 88 18 91 08/19/24 07:45 129/80 08/19/24 07:45 37.0 C 87 16 94 08/19/24 07:30 128/67 08/19/24 07:30 128/67 08/19/24 07:29 Mechanical Vent 08/19/24 07:27 36.9 C 86 19 96 08/19/24 07:27 08/19/24 07:19 89 08/19/24 07:18 86 26 H 94 08/19/24 07:15 124/75 08/19/24 07:00 36.8 C 94 H 18 93 08/19/24 07:00 37 C 08/19/24 06:54 37.1 C 90 21 92 08/19/24 06:45 126/73 08/19/24 06:42 37.4 C 90 12 93 08/19/24 06:30 112/93 08/19/24 06:30 37.4 C 90 21 92 08/19/24 06:24 37.4 C 87 16 94 08/19/24 06:15 115/74 08/19/24 06:15 115/74 08/19/24 06:15 37.4 C 88 22 92 08/19/24 06:00 124/73 08/19/24 06:00 124/73 08/19/24 05:51 37.3 C 90 17 92 08/19/24 05:45 118/85 08/19/24 05:45 118/85 08/19/24 05:39 37.3 C 90 18 93 08/19/24 05:00 111/73 08/19/24 05:00 37.3 C 78 17 92 08/19/24 04:45 120/74 08/19/24 04:45 120/74 08/19/24 04:45 37.3 C 81 19 91 08/19/24 04:42 37.3 C 95 H 19 93 08/19/24 04:30 109/72 08/19/24 04:30 109/72 08/19/24 04:24 37.3 C 81 16 93 08/19/24 04:21 37.3 C 86 16 93 08/19/24 04:15 37.3 C 85 16 93 08/19/24 04:15 110/69 08/19/24 04:15 110/69 08/19/24 04:12 37.3 C 86 16 93 08/19/24 04:00 08/19/24 03:51 37.1 C 83 16 93 08/19/24 03:42 37.0 C 90 16 93 08/19/24 03:30 37.0 C 88 17 93 08/19/24 03:24 37.0 C 89 17 92 08/19/24 03:15 36.9 C 91 H 17 92 08/19/24 03:15 116/74 08/19/24 03:15 116/74 08/19/24 03:14 87 24 93 08/19/24 03:00 124/76 08/19/24 03:00 124/76 08/19/24 03:00 124/76 08/19/24 03:00 124/76 08/19/24 03:00 37.3 C 104 H 21 94 08/19/24 02:51 37.3 C 90 18 96 08/19/24 02:45 37.3 C 101 H 18 95 08/19/24 02:45 130/82 08/19/24 02:45 130/82 O2 Del Method O2 Flow Rate O2 Flow Rate FiO2 08/19/24 12:00 08/19/24 12:00 4 08/19/24 11:45 08/19/24 11:33 08/19/24 11:30 08/19/24 11:24 Nasal Cannula 4 08/19/24 11:21 08/19/24 11:00 4 08/19/24 10:30 08/19/24 10:30 08/19/24 10:00 40 08/19/24 09:15 08/19/24 09:15 08/19/24 09:00 08/19/24 09:00 08/19/24 09:00 08/19/24 08:45 08/19/24 08:45 08/19/24 08:30 08/19/24 08:15 08/19/24 08:09 08/19/24 08:06 08/19/24 08:00 08/19/24 08:00 08/19/24 08:00 08/19/24 07:51 08/19/24 07:45 08/19/24 07:45 08/19/24 07:30 08/19/24 07:30 08/19/24 07:29 40 08/19/24 07:27 08/19/24 07:27 40 08/19/24 07:19 08/19/24 07:18 40 08/19/24 07:15 08/19/24 07:00 08/19/24 07:00 08/19/24 06:54 08/19/24 06:45 08/19/24 06:42 08/19/24 06:30 08/19/24 06:30 08/19/24 06:24 08/19/24 06:15 08/19/24 06:15 08/19/24 06:15 08/19/24 06:00 08/19/24 06:00 08/19/24 05:51 08/19/24 05:45 08/19/24 05:45 08/19/24 05:39 08/19/24 05:00 08/19/24 05:00 08/19/24 04:45 08/19/24 04:45 08/19/24 04:45 08/19/24 04:42 08/19/24 04:30 08/19/24 04:30 08/19/24 04:24 08/19/24 04:21 08/19/24 04:15 08/19/24 04:15 08/19/24 04:15 08/19/24 04:12 08/19/24 04:00 40 08/19/24 03:51 08/19/24 03:42 08/19/24 03:30 08/19/24 03:24 08/19/24 03:15 08/19/24 03:15 08/19/24 03:15 08/19/24 03:14 40 08/19/24 03:00 08/19/24 03:00 08/19/24 03:00 08/19/24 03:00 08/19/24 03:00 08/19/24 02:51 08/19/24 02:45 08/19/24 02:45 08/19/24 02:45 PG Care Time/CCT Total # of Minutes Spent Total Time Spent with Patient: Total time spent is greater than 50% in coordination of care (as documented) at patient's floor/unit and/or counseling patient: Coding Level of Care Code None
--- NOTE | 2024-08-19 15:30 | Hospitalist Progress Note ---
"Date of Service August 19, 2024 Assessment & Plan (1) Dental abscess: (2) Isael's angina: (3) Narrowing of airway: (4) Odontogenic infection of jaw: (5) Hypertension: Plan This is a 38-year-old male who presented on 08/18 for severe right submandibular and facial swelling. # Sepsis/right mandibular abscess | severe odontogenic infection | Isael's angina Soft tissue neck CT revealed findings consistent with severe odontogenic infection involving the right hemimandible with a 1.6 x 0.6 cm abscess; extensive associated inflammation He is now status post incision and drainage by maxillofacial surgery The area of swelling is much improved, pain is also much improved according to the patient Inflammatory markers continue to improve Will continue antibiotics IV Unasyn Cultures growing Staphylococcus Strep, full characterization sensitivity pending Decadron 6 mg IV TID IV acetaminophen and morphine PRN Continue to monitor for airway obstruction/swelling progression #HTN Will plan to reinitiate patient on HCTZ 25 mg daily following procedure #Episode of chest pain Reported morning [employer]; lasted 3 minutes Troponin ordered, pending EKG ordered, pending Continuous telemetry monitoring for now #Abnormal appearance of brain on CT -has 4.1 cm area of encephalomalacia in the right frontal lobe-unclear etiology - Recommend follow-up with brain MRI MS known history of stroke or other issue from childhood? #Abnormal LFTs-alkaline phosphatase and total bilirubin mildly elevated. Given obesity could be from fatty liver - Follow CMP and follow as outpatient Disposition: Continue to monitor in the ICU VTE PPx: Lovenox 40 mg SQ q24h Admission and Anticipated Discharge Date Admission Date: August 18, 2024 Subjective Patient seen and examined in the ICU, says his facial swelling and pain are much improved Review of Systems Review of Systems: All systems reviewed are negative, apart from the ones contained in the history. Physical Exam Physical Exam: The patient is awake, alert and oriented 3, well developed and well nourished, normocephalic and atraumatic, lying in bed and in no acute distress. HEENT--Facial swelling Neck--supple. No JVD. No bruits. Thyroid normal, trachea midline, no adenopathy. Heart--normal S1 and S2. No murmurs, rubs or gallops. Lungs--clear bilaterally, no respiratory distress, no accessory muscle use. Abdomen--normal bowel sounds and soft. Extremities--no cyanosis or clubbing. No edema. Dermatologic--normal skin turgor, normal color, no abnormal lymph nodes, no rash. Neurologic--cranial nerves II through XII grossly intact. Rheumatologic--normal range of motion. Psychiatric--normal affect. Results & Data Results & Data Vital Signs (Past 12 Hours) Vital Signs Temp Pulse Resp BP Pulse Ox Pulse Ox O2 Del Method 08/19/24 15:00 99.5 F 08/19/24 14:30 169/105 H 08/19/24 14:30 99.9 F H 91 H 20 92 08/19/24 14:21 99.9 F H 88 17 94 08/19/24 14:00 154/97 H 08/19/24 13:45 99.7 F H 87 15 98 08/19/24 13:30 144/78 H 08/19/24 13:21 99.7 F H 90 20 98 08/19/24 13:00 150/95 H 08/19/24 13:00 99.5 F 93 H 20 98 08/19/24 12:31 154/88 H 08/19/24 12:30 99.5 F 88 18 92 08/19/24 12:00 153/95 H 08/19/24 12:00 153/95 H 08/19/24 12:00 99.5 F 85 15 95 Nasal Cannula 08/19/24 11:45 99.3 F 82 13 96 08/19/24 11:33 99.3 F 83 16 96 08/19/24 11:30 142/83 H 08/19/24 11:24 96 08/19/24 11:21 99.3 F 85 12 94 08/19/24 11:00 99.5 F 83 30 H 96 Nasal Cannula 08/19/24 10:30 130/82 08/19/24 10:30 99.3 F 79 15 95 08/19/24 10:00 99.3 F 87 17 96 Mechanical Vent 08/19/24 09:15 99.1 F 83 12 96 08/19/24 09:15 111/78 08/19/24 09:00 123/75 08/19/24 09:00 123/75 08/19/24 09:00 99.3 F 86 9 L 92 08/19/24 08:45 129/75 08/19/24 08:45 129/75 08/19/24 08:30 131/82 08/19/24 08:15 122/82 08/19/24 08:09 99.3 F 87 18 92 08/19/24 08:06 99.1 F 82 15 93 08/19/24 08:00 133/88 08/19/24 08:00 133/88 08/19/24 08:00 133/88 08/19/24 07:51 99.3 F 88 18 91 08/19/24 07:45 129/80 08/19/24 07:45 98.6 F 87 16 94 08/19/24 07:30 128/67 08/19/24 07:30 128/67 08/19/24 07:29 Mechanical Vent 08/19/24 07:27 98.4 F 86 19 96 08/19/24 07:27 08/19/24 07:19 89 08/19/24 07:18 86 26 H 94 08/19/24 07:15 124/75 08/19/24 07:00 98.2 F 94 H 18 93 08/19/24 07:00 98.6 F 06 06:54 98.8 F 90 21 92 08/19/24 06:45 126/73 08/19/24 06:42 99.3 F 90 12 93 08/19/24 06:30 112/93 08/19/24 06:30 99.3 F 90 21 92 08/19/24 06:24 99.3 F 87 16 94 08/19/24 06:15 115/74 08/19/24 06:15 115/74 08/19/24 06:15 99.3 F 88 22 92 08/19/24 06:00 124/73 08/19/24 06:00 124/73 08/19/24 05:51 99.1 F 90 17 92 08/19/24 05:45 118/85 08/19/24 05:45 118/85 08/19/24 05:39 99.1 F 90 18 93 08/19/24 05:00 111/73 08/19/24 05:00 99.1 F 78 17 92 08/19/24 04:45 120/74 08/19/24 04:45 120/74 08/19/24 04:45 99.1 F 81 19 91 08/19/24 04:42 99.1 F 95 H 19 93 08/19/24 04:30 109/72 08/19/24 04:30 109/72 08/19/24 04:24 99.1 F 81 16 93 08/19/24 04:21 99.1 F 86 16 93 08/19/24 04:15 99.1 F 85 16 93 08/19/24 04:15 110/69 08/19/24 04:15 110/69 08/19/24 04:12 99.1 F 86 16 93 08/19/24 04:00 08/19/24 03:51 98.8 F 83 16 93 08/19/24 03:42 98.6 F 90 16 93 08/19/24 03:30 98.6 F 88 17 93 O2 Del Method O2 Flow Rate O2 Flow Rate FiO2 08/19/24 15:00 08/19/24 14:30 08/19/24 14:30 08/19/24 14:21 08/19/24 14:00 08/19/24 13:45 08/19/24 13:30 08/19/24 13:21 08/19/24 13:00 08/19/24 13:00 08/19/24 12:31 08/19/24 12:30 08/19/24 12:00 08/19/24 12:00 08/19/24 12:00 4 08/19/24 11:45 08/19/24 11:33 08/19/24 11:30 08/19/24 11:24 Nasal Cannula 4 08/19/24 11:21 08/19/24 11:00 4 08/19/24 10:30 08/19/24 10:30 08/19/24 10:00 40 08/19/24 09:15 08/19/24 09:15 08/19/24 09:00 08/19/24 09:00 08/19/24 09:00 08/19/24 08:45 08/19/24 08:45 08/19/24 08:30 08/19/24 08:15 08/19/24 08:09 08/19/24 08:06 08/19/24 08:00 08/19/24 08:00 08/19/24 08:00 08/19/24 07:51 08/19/24 07:45 08/19/24 07:45 08/19/24 07:30 08/19/24 07:30 08/19/24 07:29 40 08/19/24 07:27 08/19/24 07:27 40 08/19/24 07:19 08/19/24 07:18 40 08/19/24 07:15 08/19/24 07:00 08/19/24 07:00 08/19/24 06:54 08/19/24 06:45 08/19/24 06:42 08/19/24 06:30 08/19/24 06:30 08/19/24 06:24 08/19/24 06:15 08/19/24 06:15 08/19/24 06:15 08/19/24 06:00 08/19/24 06:00 08/19/24 05:51 08/19/24 05:45 08/19/24 05:45 08/19/24 05:39 08/19/24 05:00 08/19/24 05:00 08/19/24 04:45 08/19/24 04:45 08/19/24 04:45 08/19/24 04:42 08/19/24 04:30 08/19/24 04:30 08/19/24 04:24 08/19/24 04:21 08/19/24 04:15 08/19/24 04:15 08/19/24 04:15 08/19/24 04:12 08/19/24 04:00 40 08/19/24 03:51 08/19/24 03:42 08/19/24 03:30 PG Care Time/CCT Total # of Minutes Spent Total Time Spent with Patient: Total time spent is greater than 50% in coordination of care (as documented) at patient's floor/unit and/or counseling patient: Coding Level of Care Code 84368 SUB INP/OBS CARE 2/35MIN Diagnoses Dental abscess K04.7 Isael's angina K12.2 Narrowing of airway J98.8 Odontogenic infection of jaw M27.2 Primary hypertension I10 Hypertension type: primary hypertension Time Spent (min) 35 (5) Hypertension Hypertension type: primary hypertension Qualified Code(s): I10 - Essential (primary) hypertension"
[2024-08-19] MEDS: DAPTOmycin 700 MG in SYRINGE 0 ML IV ONE (15:56)
[2024-08-19] MEDS: CHLORHEXIDINE GLUCONATE 0.12% 480 ML MT PRN (15:56)
[2024-08-20 04:54] LABS: Hematocrit (blood only) 37.2 % (42.0-52.0); Hemoglobin 12.7 g/dl (14.0-18.0); Mean Corpuscular Hemoglobin 30.1 pg (25.0-34.0); Mean Corpuscular Hgb Conc 34.1 g/dL (32.0-36.0); Mean Corpuscular Volume 88.2 fL (80.0-100.0); Platelet Count 272 K/uL (130-400); RDW Coefficient of Variation 14.2 % (11.5-14.5); Red Blood Count 4.22 M/uL (4.70-6.10); White Blood Count 15.33 K/ul (4.8-10.8)
[2024-08-20 05:19] LABS: BUN Creatinine Ratio 28.3 (10-20); Calcium 8.4 mg/dl (8.6-10.3); Creatinine Clr Calc Pharmacy 224.3 ml/min; Magnesium 2.2 mg/dl (1.7-2.4); Phosphorus 3.8 mg/dl (2.5-4.9); Potassium 3.6 mmol/L (3.5-5.1)
--- NOTE | 2024-08-20 08:08 | Critical Care Progress Note ---
Date of Service August 20, 2024 Assessment & Plan (1) Bipolar 1 disorder: (2) Odontogenic infection of jaw: (3) Narrowing of airway: (4) Dental abscess: (5) ADHD: (6) Hypertension: Plan Reason Critically Ill: 38-year-old male present to the hospital for right jaw pain, fever and weakness which has been going on for approximately 10 days. He had significant narrowing of the airway, and was taken to the OR by Dr. Woodruff and kept intubated as per anesthesia's recommendation Past medical history: Hypertension, history of encephalomalacia in the right frontal lobe Neuro - [facility] ICU: Negative --As per the chart patient seems to have encephalomalacia of the right frontal lobe of unclear etiology Cardiac - -- Sinus tachycardia --> resolved Likely from underlying sepsis and pain EKG 08/18/2024 1437: Normal sinus rhythm, normal axis, no ST-T wave changes Respiratory - -- Extubated 08/19/2024 For airway protection given the significant narrowing from the right-sided abscess GI - -- Mild elevated alk phos and bilirubin Continue to monitor RENAL/LYTES - -- No acute issues Monitor BUNs/creatinine Avoid nephrotoxic medication ENDO - -- ICU hypoglycemia protocol HEME - -- No acute issues Monitor H&H ID - -- Right jaw infection with dental abscess S/p I&D and right lower teeth extraction on 08/18/[address] Woodruff Continue with Unasyn, continue with Decadron Procalcitonin 6.26 Mandibular cultures growing Staph aureus as well as Streptococcus anginosus, got a dose of daptomycin on 08/19/2024 at 4 PM. --Prophylaxis VTE: Lovenox GI: Pantoprazole Lines: Peripheral Diet: Cardiac Plan: In/out: +918, urine output 1725 Given the culture from the mandible is growing staph, we are not sure whether it is MRSA. Did get daptomycin on 08/19/2024, if we do not have the sensitivities back by 4 PM then we will give another dose of daptomycin Will start the patient on metoprolol 50 mg twice daily for hypertension Potassium being replaced Given the patient has no insurance, case management was made aware to make sure what ever regimen of antibiotics and medications that he is discharged on would be affordable to the patient. Will defer de-escalation of dexamethasone regimen to OMFS I spent more than 50 minutes looking in the chart, images, discussing the plan of care with the patient, RN as well as primary team This includes time spent evaluating patient, direct bedside care, chart review, placing orders, interpretation of diagnostic studies, discussion with consultants, patient, and family members, as well as other required patient management activities. This time is exclusive of all separately billable procedures, and teaching time and separate from and in addition to any other critical care service time. Please note the above document was generated using voice recognition software. It may contain grammatical, syntax or spelling errors.Any formal questions or concerns about the content, text or information contained within the body of this dictation should be directly addressed to the provider for clarification. Admission and Anticipated Discharge Date Admission Date: August 18, 2024 Subjective Patient seen and examined at bedside. No acute distress, no adverse events overnight Patient's fianc was in the room at the time of examination He was saturating 95-96% on room air. His systolic blood pressure was in the 150s with heart rate in the mid to high 80s. He stated that he is feeling much better. No difficulty swallowing Is having some discomfort because of the drainage tubing that he has in his mouth No blurry vision, no headache No nausea or vomiting No abdominal pain Review of Systems 2 Review of Systems: All systems reviewed & are unremarkable except as noted in Subjective Physical Exam 2 Physical Exam: Constitutional: No acute distress HEENT: EOMI, PERRLA, improvement in the swelling on the right side of the face, is able to open his right eye, Respiratory system: Good air entry bilaterally, no wheeze, no rhonchi, no crackles CVS: S1-S2 positive, no murmurs or gallops Abdomen: Soft, nontender, nondistended, positive bowel sounds x4 Extremities: +2 pulses bilaterally radialis/ dorsalis pedis, no cyanosis, no edema Neuro: Awake alert oriented x 3 Psych: Normal mood and affect G/U: Positive José Skin: no rashes, warm and dry Results & Data Results & Data Vital Signs (Past 12 Hours) Vital Signs Temp Pulse Resp BP Pulse Ox O2 Del Method 08/20/24 07:56 Room Air 08/20/24 06:00 157/97 H 08/20/24 05:54 37.1 C 76 15 92 08/20/24 05:51 37.1 C 84 15 95 08/20/24 05:30 149/96 H 08/20/24 05:30 149/96 H 08/20/24 05:30 149/96 H 08/20/24 05:27 37.1 C 84 18 92 08/20/24 05:21 37.1 C 81 14 92 08/20/24 05:18 37.1 C 81 19 95 08/20/24 05:06 37.1 C 80 17 96 08/20/24 05:00 161/103 H 08/20/24 05:00 161/103 H 08/20/24 04:57 37.1 C 82 18 93 08/20/24 04:51 37.1 C 74 17 92 08/20/24 04:48 37.1 C 83 15 94 08/20/24 04:33 37.2 C 80 15 94 08/20/24 04:30 147/106 H 08/20/24 04:30 147/106 H 08/20/24 04:30 147/106 H 08/20/24 04:06 37.2 C 80 16 93 08/20/24 04:00 151/97 H 08/20/24 04:00 151/97 H 08/20/24 04:00 151/97 H 08/20/24 03:54 37.3 C 84 18 91 08/20/24 03:48 37.3 C 78 14 92 08/20/24 03:30 158/100 H 08/20/24 03:30 37.3 C 88 22 96 08/20/24 03:24 37.3 C 89 24 96 08/20/24 03:00 37.3 C 77 20 94 08/20/24 02:42 37.4 C 83 16 94 08/20/24 02:31 154/105 H 08/20/24 02:31 154/105 H 08/20/24 02:09 37.4 C 79 19 93 08/20/24 02:00 37.4 C 94 H 16 95 08/20/24 02:00 169/106 H 08/20/24 02:00 169/106 H 08/20/24 02:00 169/106 H 08/20/24 01:51 37.4 C 85 22 94 08/20/24 01:48 37.4 C 83 17 93 08/20/24 01:30 37.4 C 85 17 93 08/20/24 01:21 37.5 C 93 H 21 91 08/20/24 01:12 37.5 C 85 17 94 08/20/24 01:03 37.5 C 84 18 95 08/20/24 01:00 143/98 H 08/20/24 01:00 143/98 H 08/20/24 01:00 143/98 H 08/20/24 00:51 37.4 C 89 18 93 08/20/24 00:45 37.4 C 86 20 08/20/24 00:33 37.4 C 87 18 96 08/20/24 00:24 37.4 C 91 H 20 94 08/20/24 00:12 37.4 C 93 H 22 95 08/20/24 00:03 37.5 C 83 16 93 08/20/24 00:00 88 08/20/24 00:00 149/83 H 08/20/24 00:00 149/83 H 08/19/24 23:57 37.5 C 85 19 94 08/19/24 23:54 37.5 C 94 H 20 94 08/19/24 23:36 37.5 C 102 H 19 94 08/19/24 23:27 37.5 C 84 16 90 08/19/24 23:15 37.5 C 86 22 94 08/19/24 22:51 37.5 C 92 H 18 95 08/19/24 22:45 37.5 C 88 19 94 08/19/24 22:18 37.4 C 85 15 95 08/19/24 22:01 152/94 H 08/19/24 22:00 37.4 C 90 18 95 08/19/24 21:33 37.5 C 91 H 17 90 08/19/24 21:21 37.5 C 83 20 94 08/19/24 21:12 37.4 C 88 19 08/19/24 21:09 37.4 C 91 H 23 08/19/24 21:05 132/82 08/19/24 21:05 132/82 08/19/24 20:45 37.4 C 84 16 95 08/19/24 20:42 37.4 C 91 H 23 94 08/19/24 20:30 37.4 C 93 H 24 95 08/19/24 20:21 37.4 C 92 H 19 96 08/19/24 20:12 37.4 C 96 H 18 95 Laboratory Results 08/20/24 04:41 08/20/24 04:41 Coding Level of Care Code 72732 SUB INP/OBS CARE 3/50MIN Diagnoses Bipolar 1 disorder F31.9 Odontogenic infection of jaw M27.2 Narrowing of airway J98.8 Dental abscess K04.7 ADHD F90.9 Primary hypertension I10 Hypertension type: primary hypertension (6) Hypertension Hypertension type: primary hypertension Qualified Code(s): I10 - Essential (primary) hypertension
[2024-08-20] MEDS: PANTOprazole 40 MG TAB PO SCH (09:06)
[2024-08-20] MEDS: METOPROLOL TARTRATE 50 MG TAB PO SCH (10:23)
--- NOTE | 2024-08-20 10:46 | Hospitalist Progress Note ---
"Date of Service August 20, 2024 Assessment & Plan (1) Dental abscess: (2) Isael's angina: (3) Narrowing of airway: (4) Odontogenic infection of jaw: (5) Hypertension: Plan This is a 38-year-old male who presented on 08/18 for severe right submandibular and facial swelling. # Sepsis/right mandibular abscess | severe odontogenic infection | Isael's angina Soft tissue neck CT revealed findings consistent with severe odontogenic infection involving the right hemimandible with a 1.6 x 0.6 cm abscess; extensive associated inflammation He is now status post incision and drainage by maxillofacial surgery The area of swelling is much improved, pain is also much improved according to the patient Inflammatory markers continue to improve Cultures growing Staphylococcus Strep, full characterization sensitivity pending Will continue antibiotics IV Unasyn, add Daptomycin while we wait for sensitivity Decadron 6 mg IV TID IV acetaminophen and morphine PRN Continue to monitor for airway obstruction/swelling progression #HTN Will plan to reinitiate patient on HCTZ 25 mg daily following procedure #Episode of chest pain Reported morning [employer]; lasted 3 minutes Troponin ordered, pending EKG ordered, pending Continuous telemetry monitoring for now #Abnormal appearance of brain on CT -has 4.1 cm area of encephalomalacia in the right frontal lobe-unclear etiology - Recommend follow-up with brain MRI MS known history of stroke or other issue from childhood? #Abnormal LFTs-alkaline phosphatase and total bilirubin mildly elevated. Given obesity could be from fatty liver - Follow CMP and follow as outpatient Disposition: Continue to monitor in the ICU VTE PPx: Lovenox 40 mg SQ q24h Admission and Anticipated Discharge Date Admission Date: August 18, 2024 Subjective patient seen and examined, feeling much better, swelling has improved Review of Systems Review of Systems: All systems reviewed are negative, apart from the ones contained in the history. Physical Exam Physical Exam: The patient is awake, alert and oriented 3, well developed and well nourished, normocephalic and atraumatic, lying in bed and in no acute distress. HEENT--Facial swelling Neck--supple. No JVD. No bruits. Thyroid normal, trachea midline, no adenopat hy. Heart--normal S1 and S2. No murmurs, rubs or gallops. Lungs--clear bilaterally, no respiratory distress, no accessory muscle use. Abdomen--normal bowel sounds and soft. Extremities--no cyanosis or clubbing. No edema. Dermatologic--normal skin turgor, normal color, no abnormal lymph nodes, no rash. Neurologic--cranial nerves II through XII grossly intact. Rheumatologic--normal range of motion. Psychiatric--normal affect. Results & Data Results & Data Vital Signs (Past 12 Hours) Vital Signs Temp Pulse Resp BP Pulse Ox O2 Del Method 08/20/24 08:00 153/92 H 08/20/24 08:00 97.7 F 08/20/24 08:00 83 08/20/24 07:57 98.6 F 77 18 93 08/20/24 07:56 Room Air 08/20/24 07:00 98.6 F 71 15 135/72 94 Room Air 08/20/24 06:00 157/97 H 08/20/24 05:54 98.8 F 76 15 92 08/20/24 05:51 98.8 F 84 15 95 08/20/24 05:30 149/96 H 08/20/24 05:30 149/96 H 08/20/24 05:30 149/96 H 08/20/24 05:27 98.8 F 84 18 92 08/20/24 05:21 98.8 F 81 14 92 08/20/24 05:18 98.8 F 81 19 95 08/20/24 05:06 98.8 F 80 17 96 08/20/24 05:00 161/103 H 08/20/24 05:00 161/103 H 08/20/24 04:57 98.8 F 82 18 93 08/20/24 04:51 98.8 F 74 17 92 08/20/24 04:48 98.8 F 83 15 94 08/20/24 04:33 99.0 F 80 15 94 08/20/24 04:30 147/106 H 08/20/24 04:30 147/106 H 08/20/24 04:30 147/106 H 08/20/24 04:06 99.0 F 80 16 93 08/20/24 04:00 151/97 H 08/20/24 04:00 151/97 H 08/20/24 04:00 151/97 H 08/20/24 03:54 99.1 F 84 18 91 08/20/24 03:48 99.1 F 78 14 92 08/20/24 03:30 158/100 H 08/20/24 03:30 99.1 F 88 22 96 08/20/24 03:24 99.1 F 89 24 96 08/20/24 03:00 99.1 F 77 20 94 08/20/24 02:42 99.3 F 83 16 94 08/20/24 02:31 154/105 H 08/20/24 02:31 154/105 H 08/20/24 02:09 99.3 F 79 19 93 08/20/24 02:00 99.3 F 94 H 16 95 08/20/24 02:00 169/106 H 08/20/24 02:00 169/106 H 08/20/24 02:00 169/106 H 08/20/24 01:51 99.3 F 85 22 94 08/20/24 01:48 99.3 F 83 17 93 08/20/24 01:30 99.3 F 85 17 93 08/20/24 01:21 99.5 F 93 H 21 91 08/20/24 01:12 99.5 F 85 17 94 08/20/24 01:03 99.5 F 84 18 95 08/20/24 01:00 143/98 H 08/20/24 01:00 143/98 H 08/20/24 01:00 143/98 H 08/20/24 00:51 99.3 F 89 18 93 08/20/24 00:45 99.3 F 86 20 08/20/24 00:33 99.3 F 87 18 96 08/20/24 00:24 99.3 F 91 H 20 94 08/20/24 00:12 99.3 F 93 H 22 95 08/20/24 00:03 99.5 F 83 16 93 08/20/24 00:00 88 08/20/24 00:00 149/83 H 08/20/24 00:00 149/83 H 08/19/24 23:57 99.5 F 85 19 94 08/19/24 23:54 99.5 F 94 H 20 94 08/19/24 23:36 99.5 F 102 H 19 94 08/19/24 23:27 99.5 F 84 16 90 08/19/24 23:15 99.5 F 86 22 94 08/19/24 22:51 99.5 F 92 H 18 95 08/19/24 22:45 99.5 F 88 19 94 PG Care Time/CCT Total # of Minutes Spent Total Time Spent with Patient: Total time spent is greater than 50% in coordination of care (as documented) at patient's floor/unit and/or counseling patient: Coding Level of Care Code 38856 SUB INP/OBS CARE 2/35MIN Diagnoses Dental abscess K04.7 Isael's angina K12.2 Narrowing of airway J98.8 Odontogenic infection of jaw M27.2 Primary hypertension I10 Hypertension type: primary hypertension Time Spent (min) 35 (5) Hypertension Hypertension type: primary hypertension Qualified Code(s): I10 - Essential (primary) hypertension"
[2024-08-20] MEDS ORDERED: POTASSIUM CHLORIDE CRTAB 20 MEQ TABCR PO STA (12:48)
[2024-08-20] MEDS: POTASSIUM CHLORIDE CRTAB 20 MEQ TABCR PO STA (13:38)
--- NOTE | 2024-08-20 14:05 | Progress Note ---
Date of Service August 20, 2024 Assessment & Plan Admission and Anticipated Discharge Date Admission Date: August 18, 2024 Subjective Post Op infection evaluation 48 hours The infected area is resolving very well ,still draining well Swelling is starting to fritz softer and much less, and the tissue is starting to get back to normal in size and texture. Draining functioning well Cultures were reviewed-staph infection Infection has responded very well to the antibiotics, extractions and the I and D. I requested that the patient continue with massage, heat and wound care. At this time the area is responding well, suggest continue IV antibiotics and I will evaluate tomorrow. I don`t want to discharge or change to oral antibiotics until sure that the infection is well controlled to prevent recurrence. Results & Data Vital Signs (Past 12 Hours) Vital Signs Temp Pulse Pulse Resp BP BP Pulse Ox 08/20/24 11:00 37.2 C 88 16 148/71 H 96 08/20/24 11:00 73 08/20/24 11:00 08/20/24 08:00 153/92 H 08/20/24 08:00 36.5 C 08/20/24 08:00 83 08/20/24 07:57 37.0 C 77 18 93 08/20/24 07:56 08/20/24 07:00 37.0 C 71 15 135/72 94 08/20/24 06:00 157/97 H 08/20/24 05:54 37.1 C 76 15 92 08/20/24 05:51 37.1 C 84 15 95 08/20/24 05:30 149/96 H 08/20/24 05:30 149/96 H 08/20/24 05:30 149/96 H 08/20/24 05:27 37.1 C 84 18 92 08/20/24 05:21 37.1 C 81 14 92 08/20/24 05:18 37.1 C 81 19 95 08/20/24 05:06 37.1 C 80 17 96 08/20/24 05:00 161/103 H 08/20/24 05:00 161/103 H 08/20/24 04:57 37.1 C 82 18 93 08/20/24 04:51 37.1 C 74 17 92 08/20/24 04:48 37.1 C 83 15 94 08/20/24 04:33 37.2 C 80 15 94 08/20/24 04:30 147/106 H 08/20/24 04:30 147/106 H 08/20/24 04:30 147/106 H 08/20/24 04:06 37.2 C 80 16 93 08/20/24 04:00 151/97 H 08/20/24 04:00 151/97 H 08/20/24 04:00 151/97 H 08/20/24 03:54 37.3 C 84 18 91 08/20/24 03:48 37.3 C 78 14 92 08/20/24 03:30 158/100 H 08/20/24 03:30 37.3 C 88 22 96 08/20/24 03:24 37.3 C 89 24 96 08/20/24 03:00 37.3 C 77 20 94 08/20/24 02:42 37.4 C 83 16 94 08/20/24 02:31 154/105 H 08/20/24 02:31 154/105 H 08/20/24 02:09 37.4 C 79 19 93 Pulse Ox O2 Del Method O2 Del Method 08/20/24 11:00 Room Air 08/20/24 11:00 08/20/24 11:00 96 Room Air 08/20/24 08:00 08/20/24 08:00 08/20/24 08:00 08/20/24 07:57 08/20/24 07:56 Room Air 08/20/24 07:00 Room Air 08/20/24 06:00 08/20/24 05:54 08/20/24 05:51 08/20/24 05:30 08/20/24 05:30 08/20/24 05:30 08/20/24 05:27 08/20/24 05:21 08/20/24 05:18 08/20/24 05:06 08/20/24 05:00 08/20/24 05:00 08/20/24 04:57 08/20/24 04:51 08/20/24 04:48 08/20/24 04:33 08/20/24 04:30 08/20/24 04:30 08/20/24 04:30 08/20/24 04:06 08/20/24 04:00 08/20/24 04:00 08/20/24 04:00 08/20/24 03:54 08/20/24 03:48 08/20/24 03:30 08/20/24 03:30 08/20/24 03:24 08/20/24 03:00 08/20/24 02:42 08/20/24 02:31 08/20/24 02:31 08/20/24 02:09 PG Care Time/CCT Total # of Minutes Spent Total Time Spent with Patient: Total time spent is greater than 50% in coordination of care (as documented) at patient's floor/unit and/or counseling patient: Coding Level of Care Code 68258 SUB INP/OBS CARE 03/28MIN
[2024-08-20] MEDS: DAPTOmycin 700 MG in SYRINGE 0 ML IV ONE (18:12)
[2024-08-21 02:12] VITALS: RESP 18; O2SAT 96
[2024-08-21 08:18] LABS: Hematocrit (blood only) 39.9 % (42.0-52.0); Hemoglobin 13.1 g/dl (14.0-18.0); Mean Corpuscular Hemoglobin 29.4 pg (25.0-34.0); Mean Corpuscular Hgb Conc 32.8 g/dL (32.0-36.0); Mean Corpuscular Volume 89.5 fL (80.0-100.0); Mean Platelet Volume 10.5 fL (9.4-12.4); Platelet Count 341 K/uL (130-400); RDW Coefficient of Variation 14.3 % (11.5-14.5); RDW Standard Deviation 46.7 fL (36.4-46.3); Red Blood Count 4.46 M/uL (4.70-6.10); White Blood Count 12.67 K/ul (4.8-10.8)
--- NOTE | 2024-08-21 11:13 | Hospitalist Progress Note ---
"Date of Service August 21, 2024 Assessment & Plan (1) Dental abscess: (2) Isael's angina: (3) Narrowing of airway: (4) Odontogenic infection of jaw: (5) Hypertension: Plan This is a 38-year-old male who presented on 08/18 for severe right submandibular and facial swelling. # Sepsis/right mandibular abscess | severe odontogenic infection | Isael's angina Soft tissue neck CT revealed findings consistent with severe odontogenic infection involving the right hemimandible with a 1.6 x 0.6 cm abscess; extensive associated inflammation He is now status post incision and drainage by maxillofacial surgery The area of swelling is much improved, pain is also much improved according to the patient Inflammatory markers continue to improve Cultures growing Staphylococcus MSSA ,Strep, provotella (likely contaminant) Will continue antibiotics IV Unasyn, Will eventually discharge on Dicloxacillin (Surgery wants to continue IV for now) Decadron 6 mg IV TID IV acetaminophen and morphine PRN #HTN Continue on HCTZ 25 mg daily following procedure #Episode of chest pain 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 #Abnormal LFTs-alkaline phosphatase and total bilirubin mildly elevated. Given obesity could be from fatty liver - Follow CMP and follow as outpatient Disposition: Continue to monitor in the ICU VTE PPx: Lovenox 40 mg SQ q24h Admission and Anticipated Discharge Date Admission Date: August 18, 2024 Review of Systems Review of Systems: All systems reviewed are negative, apart from the ones contained in the history. Physical Exam Physical Exam: The patient is awake, alert and oriented 3, well developed and well nourished, normocephalic and atraumatic, lying in bed and in no acute distress. HEENT--Facial swelling Neck--supple. No JVD. No bruits. Thyroid normal, trachea midline, no adenopathy. Heart--normal S1 and S2. No murmurs, rubs or gallops. Lungs--clear bilaterally, no respiratory distress, no accessory muscle use. Abdomen--normal bowel sounds and soft. Extremities--no cyanosis or clubbing. No edema. Dermatologic--normal skin turgor, normal color, no abnormal lymph nodes, no rash. Neurologic--cranial nerves II through XII grossly intact. Rheumatologic--normal range of motion. Psychiatric--normal affect. Results & Data Results & Data Vital Signs (Past 12 Hours) Vital Signs Temp Pulse Pulse Resp BP Pulse Ox O2 Del Method 08/21/24 08:00 86 08/21/24 07:56 98.2 F 70 18 156/90 H 96 Room Air 08/21/24 02:11 97.5 F L 88 18 143/88 H 96 Room Air PG Care Time/CCT Total # of Minutes Spent Total Time Spent with Patient: Total time spent is greater than 50% in coordination of care (as documented) at patient's floor/unit and/or counseling patient: Coding Level of Care Code 38100 SUB INP/OBS CARE 2/35MIN Diagnoses Dental abscess K04.7 Isael's angina K12.2 Narrowing of airway J98.8 Odontogenic infection of jaw M27.2 Primary hypertension I10 Hypertension type: primary hypertension Time Spent (min) 35 (5) Hypertension Hypertension type: primary hypertension Qualified Code(s): I10 - Essential (primary) hypertension"
[2024-08-21] MEDS: hydroCHLOROthiazide 25 MG TAB PO STA (11:46)
[2024-08-21 12:55] VITALS: BP 141/88; PULSE 78; TEMP 97.7
--- NOTE | 2024-08-21 14:48 | Progress Note ---
Date of Service August 21, 2024 Assessment & Plan Admission and Anticipated Discharge Date Admission Date: August 18, 2024 Subjective Post Op infection evaluation at 3 days The infected area is resolving very well-excellent progress from last 24 hours Swelling almost gone and the tissue is backing to normal in size and texture. Much less drainage is noted. Drain was trimmed and I will plan removal on Saturday in the office Cultures were reviewed. Infection has responded very well to the antibiotics, extractions and the I and D. I requested that the patient continue with massage, heat and wound care. I reviewed postoperative management, including a oral hygiene care dietary care and the need for follow up. I will be prescribing about 12 to 15 Vicodin pain medication as well as a Peridex mouth rinse. He was placed on the appropriate antibiotics as suggested by the medical team. These were called into his pharmacy in [place]. Antibiotics=Dicloxacillin 500 1 q 6 hrs X 28 At this time the area is responding well to treatment, OK for discharge today with follow up in my office SaturdayAugust 24 at 1 :15 Results & Data Vital Signs (Past 12 Hours) Vital Signs Temp Pulse Pulse Resp BP Pulse Ox O2 Del Method 08/21/24 12:54 36.5 C 78 18 141/88 H 96 Room Air 08/21/24 08:00 86 08/21/24 07:56 36.8 C 70 18 156/90 H 96 Room Air PG Care Time/CCT Total # of Minutes Spent Total Time Spent with Patient: Total time spent is greater than 50% in coordination of care (as documented) at patient's floor/unit and/or counseling patient: Coding Level of Care Code 49788 SUB INP/OBS CARE 03/28MIN
--- NOTE | 2024-08-21 15:01 | Discharge Summary ---
"Date of Service August 21, 2024 Admission HPI Per Admitting Provider Mr. King is a 38-year-old male without significant PMH. He presented on 08/18 due to concerns for dental abscess x 1.5 week [employer]. Patient reports that the swelling in his right jaw has progressively worsened over the past week. He went to [facility] yesterday, where he had a CT scan of his face done revealing an odontogenic infection of the jaw; he was sent home on oral antibiotics. He then woke up this morning, and felt like the swelling had extended to his right eye and mouth. He took Tylenol and ibuprofen at 0900 prior to coming to the hospital, but had difficulty swallowing the pills. He reports that it hurts to swallow, and he has not had anything solid to eat since 08/13. Patient also reports he had fevers at home intermittently up to 102 F. He denies prior history of dental infections. No history of MRSA infections to his knowledge. No puslike drainage from the mouth. No prior cardiac history (no history of MO, CHF, diabetes, or stroke). He reports his only medical condition is high blood pressure, for which he has hydrochlorothiazide 25 mg daily; however, he has not been taking this due to not having insurance and being out of pills. No sick contacts. Additionally, he reports that he developed brownish/black diarrhea last night. Patient has not been to a dentist in a couple years. He denies smoking or recent alcohol use. Former tobacco chewer, but nothing within the past year. Patient is hypertensive at 149/89 at time of admission; vitals otherwise stable. ED course: Unasyn 3000 mg IV NSS 1000 mL IV Zofran 4 mg IV Morphine 4 mg IV ROS: Patient endorses fevers, chills, night-sweats, body aches, TORRES, brief episode of sharp chest pain this morning (lasted approximately 3 minutes after waking), diarrhea started last night, Patient denies dizziness, lightheadedness, changes in vision, blurry vision, double vision, photophobia, tinnitus, chest pain, chest palpitations, SOB, pleuritic CP, blood in the urine/stool, burning with urination, or numbness/tingling in the arms or legs. Admission Exam (Per Admitting) Constitutional The patient is awake, alert and oriented 3, well developed and well nourished, normocephalic and atraumatic, lying in bed and in no acute distress. HEENT--PERRL, EOMI, mucous membranes and oropharynx mildly dry Neck--supple. No JVD. No bruits. Thyroid normal, trachea midline, no adenopathy. Heart--normal S1 and S2. No murmurs, rubs or gallops. Lungs--clear bilaterally, no respiratory distress, no accessory muscle use. Abdomen--normal bowel sounds and soft. Extremities--no cyanosis or clubbing. No edema. Dermatologic--normal skin turgor, normal color, no abnormal lymph nodes, no rash. Neurologic--cranial nerves II through XII grossly intact. Rheumatologic--normal range of motion. Psychiatric--normal affect. Discharge Data Consultations 08/18/24 13:35 ED Decision to Admit Stat 08/18/24 18:24 Consult Bottle Inspector Routine Consult Bottle Inspector Routine Procedures Performed Operation Date: 08/18/24 13:50 Actual Procedures p Right Facial Incision and Drainage(Right) - Terrence Woodruff DMD s Right Lower Teeth Extraction, #30,31,32,1(Right) - Terrence Woodruff DMD Hospital Course (1) Dental abscess: (2) Isael's angina: (3) Narrowing of airway: (4) Odontogenic infection of jaw: (5) Hypertension: Plan This is a 38-year-old male who presented on 08/18 for severe right submandibular and facial swelling. # Sepsis/right mandibular abscess | severe odontogenic infection | Isael's angina Soft tissue neck CT revealed findings consistent with severe odontogenic infection involving the right hemimandible with a 1.6 x 0.6 cm abscess; extensive associated inflammation He is now status post incision and drainage by maxillofacial surgery The area of swelling is much improved, pain is also much improved according to the patient Inflammatory markers continue to improve Cultures growing Staphylococcus MSSA ,Strep, provotella (likely contaminant) Will continue antibiotics IV Unasyn, Will eventually discharge on Dicloxacillin for 7 days #HTN Continue on HCTZ 25 mg daily following procedure #Episode of chest pain Reported morning [employer]; lasted 3 minutes Troponin ordered, pending EKG ordered, pending Continuous telemetry monitoring for now #Abnormal appearance of brain on CT -has 4.1 cm area of encephalomalacia in the right frontal lobe-unclear etiology - Recommend follow-up with brain MRI MS known history of stroke or other issue from childhood? #Abnormal LFTs-alkaline phosphatase and total bilirubin mildly elevated. Given obesity could be from fatty liver - Follow CMP and follow as outpatient Disposition: Continue to monitor in the ICU VTE PPx: Lovenox 40 mg SQ q24h Coding Level of Care Code 79978 INP/OBS DISCH >30 MIN Diagnoses Dental abscess K04.7 Isael's angina K12.2 Narrowing of airway J98.8 Odontogenic infection of jaw M27.2 Primary hypertension I10 Hypertension type: primary hypertension Time Spent (min) 35"
[2024-08-22] MEDS ORDERED: hydroCHLOROthiazide 25 MG TAB PO SCH (09:00)
== END 2024-08-21 15:57 | disposition home or self-care (01) | DRG 854 ==
LOC: ED 10:21 → 1E 14:03 → SUATTDRO 14:03 → 1E 14:55 → 2S 08-20 11:24